=== PATIENT | female | born 1950 | race Caucasian/White ===

== ENCOUNTER → 2018-03-19 11:07 | Outpatient (CLI) | payer MEDICARE, OTHER, SELFPAY ==
[2018-03-19 11:46] LABS: Add Manual Diff / Slide Review NO; Basophils Percent Auto 0.8 % (0-2); Eosinophils Percent Auto 3.1 % (2-4); Lymphocytes Percent Auto 22.4 % (25-40); Mean Corpuscular HGB Conc 33.3 % (30-36); Mean Corpuscular Hemoglobin 27.9 PG (26-34); Mean Corpuscular Volume 83.9 fL (80-100); Monocytes Percent Auto 13.2 % (3-14); Neutrophils Absolute Auto 2800 /uL (3000-5900); Neutrophils Percent Auto 60.5 % (50-75); Platelet Count 237 X10^3/uL (150-400); Red Blood Cell Count 4.64 X10^6/uL (4.0-5.2); Red Cell Distribution Width 15.9 % (11.6-14.8); White Blood Cell Count 4.6 X10^3/uL (4.5-11.0)
[2018-03-19 11:54] LABS: Alanine Aminotransferase 29 IU/L (9-52); Albumin 4.3 g/dL (3.5-5.0); Albumin Globulin Ratio 1.5 (1.0-2.8); Alkaline Phosphatase 96 U/L (38-126); Aspartate Aminotransferase 30 IU/L (14-36); BUN Creatinine Ratio 26.3 (6-22); Bilirubin Total 0.4 mg/dL (0.2-1.3); Blood Urea Nitrogen 21 mg/dL (7-17); Calcium 9.3 mg/dL (8.4-10.2); Carbon Dioxide 27 mmol/L (22-32); Chloride 102 mmol/L (98-107); Estimated Glomerular Filt Rate > 60.0 mL/min (>60); Globulin 2.9 g/dL (1.7-4.1); Glucose 86 mg/dL (80-110); HEMOLYSIS < 15 (0-50); Sodium 141 mmol/L (137-145); Total Protein 7.2 g/dL (6.3-8.2)
[2018-03-19 13:06] LABS: Cancer Antigen 125 3940 U/mL (0-35)
[2018-03-19 16:05] LABS: Carcinoembryonic Antigen 0.3 ng/mL (0.1-3.0)
== END ==
PROVIDERS: Family Provider Obstetrics & Gynecology; PCP Family Medicine; Visit Provider Internal Medicine Hematology & Oncology
DX: C57.00 Malignant neoplasm of unspecified fallopian tube (principal); Z15.01 Genetic susceptibility to malignant neoplasm of breast; Z85.3 Personal history of malignant neoplasm of breast
CPT/HCPCS: 36415; 80053; 82378; 85025; 86304

== ENCOUNTER → 2018-03-27 10:23 | Outpatient (CLI) | payer MEDICARE, OTHER, SELFPAY ==
--- NOTE | 2018-03-27 11:16 | DI.CT.S_ITS ---
PROCEDURE: CT CHEST ABD PEL W CON INDICATIONS: Follow up ovarian cancer surveillance. TECHNIQUE: After the administration of oral and intravenous contrast, 5 mm thick sections acquired from the lung apices to the symphysis. 5 mm coronal and sagittal reformats were performed, with additional 7 mm coronal MIP reformats through the lungs. For radiation dose reduction, the following was used: automated exposure control, adjustment of mA and/or kV according to patient size. COMPARISON: None. FINDINGS: Image quality: Excellent. CHEST: Lungs and pleura: No acute airspace opacities. No pleural effusions or pneumothorax. Central and peripheral airways appear patent and normal in caliber. Mediastinum: Heart size is normal. No pericardial effusion. No mediastinal or hilar adenopathy by size criteria. Thoracic aorta and central pulmonary arteries are normal in size. Mild calcification of the aorta and branch vessels. Chest wall: No axillary or supraclavicular adenopathy by size criteria. Thyroid gland is unremarkable. Surgical clips project over the right chest.. ABDOMEN: Solid organs: There is redemonstration of a 2.1 x 2.1 cm oval mass interposed between and directly contacting the right hepatic lobe and right kidney (remeasured on comparison PET/CT exam of 08/22/17 at 2.0 x 1.9 cm). There is now an adjacent 2.0 cm area of ill-defined hypoattenuation within the posterior right hepatic lobe (hepatic segment 6) concerning for direct invasion. fluid tracks anteromedially along the posterior margin of hepatic segment 6 where a second 1.5 cm cystic mass interposed between the right hepatic lobe and the duodenum (axial image 61 of series 2). There is a 1.5 x 1.4 cm new soft tissue mass adjacent the mesenteric border of the distal stomach on axial image 68 of series 2. Gallbladder is unremarkable. No intrahepatic or extrahepatic biliary ductal dilatation. Small subcentimeter hypoattenuating oval circumscribed foci within the pancreatic head are noted. The spleen and bilateral adrenal glands are unremarkable. Subcentimeter hypoattenuating foci within the kidneys are too small to fully characterize on this exam but likely represent renal cysts. Peritoneum and bowel: There is a 3.9 x 3.5 cm oval hypoattenuating mass in the left pelvis which appears to involve/invade an adjacent loop of small bowel (axial image 99 of series 2). Nodes and vessels: Interval decrease in size of the previously identified left para-aortic lymph node which currently measures 0.6 cm in greatest diameter, previously 1.5 cm on 08/22/17. There is a new 1.8 cm enlarged lymph node interposed between the left common iliac vein and left psoas muscle (axial image 83 of series 2). Miscellaneous: No ventral hernias. PELVIS: Genitourinary: Bladder wall thickness is normal. Miscellaneous: No inguinal hernias or adenopathy. Bones: No suspicious bony lesions. There are mild multilevel degenerative changes of the lumbar spine with a right L5 pars defect noted. IMPRESSION: Interval worsening of metastatic disease as evidenced by: #1. Mildly increased size of the irregular mass interposed between the posterior right hepatic lobe and right kidney, with CT findings indicating worsened direct invasion of the posterior right hepatic lobe. #2. New abnormal masses adjacent the right hepatic lobe and along the mesenteric border of the stomach as described above, with the mass adjacent to the stomach measuring up to 1.5 cm in size. #3. Enlarged left iliac lymph node. Smaller left para-aortic lymph node. #4. 3.9 cm oval hypoattenuating mass in the left pelvis with concern for involvement/invasion of an adjacent small bowel loop. Dictated by: Danny Piedra M.D. on 03/27/2018 at 12:11 Approved by: Danny Piedra M.D. on 03/27/2018 at 12:42
== END ==
PROVIDERS: Family Provider Obstetrics & Gynecology; PCP Family Medicine
DX: C57.00 Malignant neoplasm of unspecified fallopian tube (principal); Z15.01 Genetic susceptibility to malignant neoplasm of breast; R16.0 Hepatomegaly, not elsewhere classified; N28.89 Other specified disorders of kidney and ureter; R59.0 Localized enlarged lymph nodes; R19.09 Other intra-abdominal and pelvic swelling, mass and lump
CPT/HCPCS: 71260; 74177; Q9967

== ENCOUNTER 2018-04-15 12:18 | Day surgery (SDC) | payer MEDICARE, OTHER, SELFPAY ==
[2018-04-15] VITALS (8 sets, daily range): BP systolic 98–145; BP diastolic 53–85; PULSE 72–83; RESP 10–18; TEMP 35.9–36.9; O2SAT 99–100; BMI 23.1
--- NOTE | 2018-04-15 | DI.RAD.S_ITS ---
PROCEDURE: XR CHEST 1V INDICATIONS: PORT A CATH PLACEMENT TECHNIQUE: One view of the chest was acquired. COMPARISON: [facility], , CHEST 1 VIEW, 11/15/2015, 13:20. FINDINGS: Surgical changes and devices: Single fluoroscopic view of the chest demonstrates a wire within the subclavian vein the tip of which is likely in the SVC. IMPRESSION: Single fluoroscopic intraoperative image of Port-A-Cath placement. Dictated by: Sandra Carmona M.D. on 04/15/2018 at 14:56 Approved by: Sandra Carmona M.D. on 04/15/2018 at 14:57
--- NOTE | 2018-04-15 | DI.RAD.S_ITS ---
PROCEDURE: XR CHEST 1V INDICATIONS: POST PORT A CATH PLACEMENT TECHNIQUE: One view of the chest was acquired. COMPARISON: [facility], CR, XR CHEST 1V, 04/15/2018, 13:37. FINDINGS: Surgical changes and devices: A left-sided Port-A-Cath central line is identified with the tip overlying the mid superior vena cava. Clips are seen overlying the right lateral chest wall. Lungs and pleura: No pleural effusions or pneumothorax. Lungs are clear. Mediastinum: Mediastinal contours appear normal. Heart size is normal. Bones and chest wall: No suspicious bony lesions. Overlying soft tissues appear unremarkable. IMPRESSION: Left-sided Port-A-Cath central line is positioned with the tip overlying the superior vena cava. No pneumothorax. Dictated by: Jossue Jones M.D. on 04/15/2018 at 14:21 Approved by: Jossue Jones M.D. on 04/15/2018 at 14:22
[2018-04-15] MEDS: LACTATED RINGERS 1,000 ML 42 ML IV (13:10)
--- NOTE | 2018-04-15 13:15 | SUR.OPER ---
Supine on padded OR bed, head on pillow, arms secured on padded arm boards at <90 degrees abduction, legs uncrossed, safety belt at thigh, tape over blanket over lower legs.
--- NOTE | 2018-04-15 13:18 | SUR.PREOP ---
PT VERY EMOTIONAL AND CRYING, SUPPORT OFFERED, DR LLANOS IN WITH PT.
[2018-04-15] MEDS: CEFAZOLIN 2 GM/100 ML FROZ.PIGGY IV (14:11)
[2018-04-15] MEDS: BUPIVACAINE 0.5% (PF) VIAL 30 ML INJ (14:26)
[2018-04-15] MEDS: LIDOCAINE 1% W/EPI INJ 20 ML INJ (14:26)
[2018-04-15] MEDS: SODIUM CHLORIDE 0.9% FLUSH 10 ML IV (14:27)
--- NOTE | 2018-04-15 14:45 | P.OP_ITS ---
Operative Date/Time/Diagnoses Date of procedure: 04/15/18 Time of procedure: 14:44 Pre-op diagnosis: Recurrent fallopian tube cancer Post-op diagnosis: same Procedure & Clinicians Procedure: Left subclavian PowerPort placement Same procedure as scheduled: Yes Indications: Recurrent fallopian tube malignancy Surgeon: Cesilia Nichole Click Yes if Unassisted: Yes Anesthesia Type: General (Goetter) and Local Operative Notes Findings: Left subclavian power port in good position in the superior vena cava Closure Type: primary Specimen(s): none sent Implants & Drains: Low-profile PowerPort Estimated Blood Loss (mL): 10 Procedure in detail: After obtaining informed consent, the patient was brought to the operating room and placed in the supine position on the operating table. Following successful induction of general endotracheal anesthesia, appropriate padding of all bony prominences, and placement of appropriate monitors, the left chest was prepped and draped in a standard surgical fashion. A timeout was held per SCOAP protocol. A mixture of local anesthetics was infiltrated in the deltopectoral groove on the left side. The right subclavian vein was accessed via the Seldinger technique and a wire was gently placed into the vein. Fluoroscopy was used to verify position of the wire in the subclavian vein. We next created a pocket of approximately 2 cm inferior to the access site of the vein. This was checked for size and found to fit the port nicely. The included tunneling device was used to place the tubing and the pocket connecting it to the access site of the subclavian vein. The tubing was trimmed to an appropriate length and connected to the Port-A-Cath. The Port-A-Cath was sewn into place in the pocket using interrupted Prolene sutures. The pocket was closed in 2 layers. The dilator and introducer were then gently passed over the wire and into the subclavian vein. The wire and dilator were removed leaving only the introducer. The tubing was then placed in the introducer and the introducer removed per woodworking machine feeder's directions. The port was then flushed with saline solution and found to be functional and in good position. It was then hep- locked with 2000 units of heparin. The incision was closed in 2 layers with Vicryl and Monocryl sutures. Dermabond was applied to the skin. All sponge, needle, and instrument counts were correct at the conclusion of the case. Patient was allowed to awaken from anesthesia and taken to the post-anesthesia care unit in good condition. Complications: none Condition: stable Disposition: PACU Plan for aftercare: 1. Discharge to home 2. The port is ready for use
--- NOTE | 2018-04-15 14:47 | PM.HP.1 ---
History of Present Illness Date Patient Seen: 04/15/18 Time Patient Seen: 14:47 Chief complaint: [id number] Narrative: Very pleasant 67-year-old lady with a history of fallopian tube malignancy. She was noted recently to have a rising tumor marker and subsequent imaging studies showed recurrence of her malignancy. She is here today for port placement to facilitate chemotherapy. Patient History Medical History History of cellulitis (Acute ~2013) Hypertension (Acute) Poor sleep (Acute) Weight loss (Acute) Surgical History History of bilateral salpingo-oophorectomy (BSO) Status post appendectomy Status post breast lumpectomy Status post hysterectomy with oophorectomy (10/18/15) Status post laparoscopy (10/09/15) Status post tonsillectomy and adenoidectomy Status post tubal ligation Family & Social History Family History: Reviewed 04/15/18 by Cesilia Nichole MD Social History: household members spouse Meds Home Medications Medication Instructions Recorded Confirmed Type multivitamin [Multiple Vitamins] 1 cap PO QDAY #0 08/29/16 04/08/18 History [ARTECIN] 500 mg PO MONDAYS #0 02/10/17 04/08/18 History [BERBERINE] 500 mg #0 02/10/17 History [CALCIUM D/GLUCARATE] #0 02/10/17 History [GLUTATHIONE FORCE/DE] #0 02/10/17 History [RESERATROL SYNERGY] #0 02/10/17 History cholecalciferol (vitamin D3) 5,000 tab PO QDAY #0 02/10/17 04/08/18 History [Vitamin D3] [HOST DEF MUSHROOM IM] #0 05/19/17 History [KETOPRIME] #0 05/19/17 History [MERIVA] #0 05/19/17 History [MK-7] #0 05/19/17 History [RESTORE] #0 05/19/17 History [RHODIOLA] #0 05/19/17 History [VISCUM DAVID] 5 mg #0 05/19/17 History ascorbic acid (vitamin C) #0 05/19/17 History oregano oil mg PO #0 05/19/17 History [MARIJUANA CAPSULES] #0 01/10/18 History naltrexone 03/24/18 History Allergies Allergy/AdvReac Type Severity Reaction Status Date / Time erythromycin base AdvReac Unknown UPSET Verified 04/15/18 13:22 [ERYTHROMYCIN BASE] STOMACH Review of Systems Review of Systems All systems reviewed & are unremarkable except as noted in HPI and below Exam Vital Signs (past 8 hours): - 04/15/18 13:13 Temperature 98.4 F Pulse Rate 72 Respiratory Rate 18 Blood Pressure 145/85 H Pulse Oximetry 100 Oxygen Delivery Method Room Air Narrative Exam Narrative: Pleasant, thin lady in no obvious distress HEENT: Normocephalic and atraumatic, pupils equal round reactive to light accommodation with anicteric sclera Lungs: Clear bilaterally Heart: Regular rate and rhythm. There is a healed left chest incision noted consistent with prior port placement and subsequent removal. Abdomen: Soft, nontender, active bowel sounds Extremities: Warm and well perfused Assessment & Plan Plan: Assessment/Plan Narrative: Recurrent fallopian tube cancer. We discussed risks and benefits of power port placement the patient expressed a desire to complete the procedure today. She has also requested that the port be placed through the same scar that the prior port was placed through. I have agreed to at least try that as an initial approach and to put it there if at all possible.
[2018-04-15] MEDS: fentaNYL 100 MCG/2 ML INJ 50 MCG IV (15:03)
== END 2018-04-15 15:37 ==
PROVIDERS: Family Provider Obstetrics & Gynecology; PCP Family Medicine; Visit Provider Surgery
PROC: (CPT 36561; principal; 2018-04-15 13:30)
DX: C57.00 Malignant neoplasm of unspecified fallopian tube (principal); I10 Essential (primary) hypertension; R63.4 Abnormal weight loss
CPT/HCPCS: 36561; 71045; 76000; C1788; J0690; J1100; J1644; J2250; J2405; J2704; J3010

== ENCOUNTER 2018-11-10 16:42 | Emergency (ER) | payer MEDICARE, OTHER, SELFPAY ==
[2018-11-10 16:48] VITALS: BP 149/93; PULSE 90; RESP 20; TEMP 36.8; O2SAT 98
--- NOTE | 2018-11-10 17:03 | ED.ABDPAIN ---
HPI - Abdominal Pain <Cate Richter PA-C - Last Filed: 11/10/18 21:42> General Chief Complaint: Abdominal Pain Stated Complaint: DISTENDED ABDOMIN Time Seen by Provider: 11/10/18 16:55 Source: patient Mode of arrival: ambulatory Limitations: no limitations History of Present Illness HPI narrative: This 67-year-old female comes to ED today secondary to worsening abdominal bloating and discomfort. She states this is really more swollen and pressure sensation all over than painful. She saw her oncologist yesterday as she has a history of fallopian tube carcinoma, metastatic. She has been scheduled for abdominal ultrasound later this week and as well as PET-CT, but states this is worse today than yesterday. She states that she does not have any nausea or vomiting, persistent loss of appetite. She denies any new fever, chills or sweats, states that she is always cold and this is unchanged. She denies any urinary symptoms or hematuria. She states she has had diarrhea for at least a month, with loose to watery stools multiple times typically in the morning, then better later in the day. She states that she occasionally has some blood in the stools which she thinks is due to hemorrhoids and irritation from the diarrhea. She has not had any blood in the stools today. She denies any chest pain or dyspnea. No cough or recent upper respiratory symptoms. No new pain or swelling in her legs. She denies any pain elsewhere today. She states that she feels like something is ?leaking? into her abdomen Related Data Home Medications Medication Instructions Recorded Confirmed [MARIJUANA CAPSULES] 1 cap PO BEDTIME PRN #0 08/06/17 11/10/18 [id number] 1 tab PO Q4-6H PRN 11/09/18 11/10/18 [Excedrin Migraine] Allergies Allergy/AdvReac Type Severity Reaction Status Date / Time erythromycin base AdvReac Unknown UPSET Verified 04/15/18 13:22 [ERYTHROMYCIN BASE] STOMACH Review of Systems <Cate Richter PA-C - Last Filed: 11/10/18 21:42> Review of Systems ROS Unobtainable: All systems reviewed & are unremarkable except as noted in HPI and below PFSH <CUCA Fermin Last Filed: 11/10/18 21:42> Medical History (Updated 11/10/18 @ 20:59 by Cate Richter PA-C) Metastatic carcinoma (Acute) Anemia (Chronic) Hypothyroidism (Chronic) Hypertension (Chronic) Poor sleep (Chronic) Weight loss (Chronic) History of cellulitis (Resolved ~2012) Surgical History (Updated 11/09/18 @ 17:54 by Karen Horne MD) History of bilateral salpingo-oophorectomy (BSO) Status post appendectomy Status post breast lumpectomy Status post hysterectomy with oophorectomy (10/18/15) Status post laparoscopy (10/09/15) Status post tonsillectomy and adenoidectomy Status post tubal ligation Social History household members: spouse Smoking Status: Never smoker Social History household members: spouse Smoking Status: Never smoker Exam <Cate Richter PA-C - Last Filed: 11/10/18 21:42> Narrative Exam Narrative: GENERAL APPEARANCE: Patient sitting comfortably, in no distress. thin and frail-appearing HEENT: PERRL, EOMI, conjunctivae pink, no scleral icterus, normal oropharynx NECK: Supple LUNGS: Clear to auscultation bilaterally. HEART: Rate and rhythm regular, normal S1 and S2, no S3 or S4. ABDOMEN: Soft, moderate distention, minimal generalized tenderness without guarding or rebound. soft bowel sounds present x 4 quadrants EXTREMITIES: No edema, no calf tenderness DERMATOLOGIC: No jaundice or exanthem NEUROLOGIC: Alert and oriented with normal speech and coordination Initial Vital Signs Initial Vital Signs: Vital Signs Temperature 98.2 F 11/10/18 16:48 Pulse Rate 90 11/10/18 16:48 Respiratory Rate 20 11/10/18 16:48 Blood Pressure 149/93 H 11/10/18 16:48 Pulse Oximetry 98 11/10/18 16:48 <Checo Stewart MD - Last Filed: 11/10/18 23:24> Initial Vital Signs Initial Vital Signs: Vital Signs Temperature 98.2 F 11/10/18 16:48 Pulse Rate 90 11/10/18 16:48 Respiratory Rate 20 11/10/18 16:48 Blood Pressure 149/93 H 11/10/18 16:48 Pulse Oximetry 98 11/10/18 16:48 Course <Cate Richter PA-C - Last Filed: 11/10/18 21:42> Additional Information: Patient reported feeling substantially improved after a single dose of Percocet and was resting comfortably during her stay. She has not had any nausea or vomiting, no new fever or other new complaints aside from feeling like this abdominal distension has increased. We are not able to obtain CT scans today. Ultrasound shows ascites without other clear acute findings. She does not appear to need hospital admission, but does need paracentesis. I spoke with Dr. Johnston who is on-call for Oncology, reviewed records and findings. He agrees with the plan for diagnostic and therapeutic paracentesis. We are attempting to get patient scheduled for this tomorrow as it cannot be done this evening. Orders were given to Radiology including lab order for cytology, with plan to forward results to Dr. Horne. mosaic technician will give these to scheduling and they will call patient in the morning. Patient is given radiology number to call if she has not heard from them by [phone]. She will also call oncology tomorrow regarding plan and whether she should follow up earlier than previously scheduled. Dr. Johnston will pass this on to Dr. Horne as well. patient agreed to return if any acutely worsening symptoms Orders Ordered: ED Orders 11/10/18 17:15 Complete Blood Count AUTO DIFF Stat Comprehensive Metabolic Panel Stat Lipase Stat Partial Thromboplastin Time Stat Prothrombin Time INR Stat 11/10/18 17:28 US abdomen complete Stat Discontinued Medications Oxycodone/Acetaminophen (Percocet 5/325) 1 tab PO NOW ONE Stop: 11/10/18 17:47 Last Admin: 11/10/18 17:53 Dose: 1 tab Oxycodone/Acetaminophen (Endocet 5/325 Prepack) 1 bottle MISC SEEINSTR ONE Stop: 11/10/18 20:51 Last Admin: 11/10/18 20:55 Dose: 1 bottle Vital Signs - 8 hr 11/10/18 16:48 11/10/18 18:26 11/10/18 19:51 Temperature 98.2 F Pulse Rate 90 79 98 H Respiratory Rate 20 15 14 Blood Pressure 149/93 H Blood Pressure [Right Arm] 144/82 H 129/66 Pulse Oximetry 98 100 95 <Checo Stewart MD - Last Filed: 11/10/18 23:24> Orders Ordered: ED Orders 11/10/18 17:15 Complete Blood Count AUTO DIFF Stat Comprehensive Metabolic Panel Stat Lipase Stat Partial Thromboplastin Time Stat Prothrombin Time INR Stat 11/10/18 17:28 US abdomen complete Stat Discontinued Medications Oxycodone/Acetaminophen (Percocet 5/325) 1 tab PO NOW ONE Stop: 11/10/18 17:47 Last Admin: 11/10/18 17:53 Dose: 1 tab Oxycodone/Acetaminophen (Endocet 5/325 Prepack) 1 bottle MISC SEEINSTR ONE Stop: 11/10/18 20:51 Last Admin: 11/10/18 20:55 Dose: 1 bottle Vital Signs - 8 hr 11/10/18 16:48 11/10/18 18:26 11/10/18 19:51 Temperature 98.2 F Pulse Rate 90 79 98 H Respiratory Rate 20 15 14 Blood Pressure 149/93 H Blood Pressure [Right Arm] 144/82 H 129/66 Pulse Oximetry 98 100 95 MDM - Abdominal Pain <Cate Richter PA-C - Last Filed: 11/10/18 21:42> Lab Data Result diagrams: 11/10/18 17:15 11/10/18 17:15 Lab Results 11/10/18 11/10/18 11/10/18 Range/Units 17:15 17:15 17:15 WBC 3.5 L (4.5-11.0) X10^3/uL RBC 3.97 L (4.0-5.2) X10^6/uL Hgb 10.5 L (12.0-16.0) g/dL Hct 32.0 L (36-46) % MCV 80.7 (80-100) fL MCH 26.4 (26-34) PG MCHC 32.7 (30-36) % RDW 14.1 (11.6-14.8) % Plt Count 402 H (150-400) X10^3/uL Neut % (Auto) 63.4 (50-75) % Lymph % (Auto) 21.5 L (25-40) % [place] % (Auto) 10.3 (3-14) % Eos % (Auto) 3.5 (2-4) % Baso % (Auto) 1.3 (0-2) % Neut # (Auto) 2200 (8122-2081) /uL Lymph # (Auto) 700 L (2395-8070) /uL [place] # (Auto) 400 (0-900) /uL Eos # (Auto) 100 (0-450) /uL Baso # (Auto) 0 (0-100) /uL PT 11.7 (10.1-12.7) SECONDS INR 1.0 (0.9-1.3) APTT 24 L (26.4-36.2) SECONDS Sodium 136 L (137-145) mmol/L Potassium 3.8 (3.4-5.1) mmol/L Chloride 101 (98-107) mmol/L Carbon Dioxide 25 (22-32) mmol/L BUN 17 (7-17) mg/dL Creatinine 0.70 (0.52-1.04) mg/dL Estimated GFR > 60.0 (>60) mL/min BUN/Creatinine Ratio 24.3 H (6-22) Glucose 90 (80-110) mg/dL Calcium 8.8 (8.4-10.2) mg/dL Total Bilirubin 0.2 (0.2-1.3) mg/dL AST 30 (14-36) IU/L ALT 27 (9-52) IU/L Alkaline Phosphatase 83 (38-126) U/L Total Protein 6.6 (6.3-8.2) g/dL Albumin 3.7 (3.5-5.0) g/dL Globulin 2.9 (1.7-4.1) g/dL Albumin/Globulin Ratio 1.3 (1.0-2.8) Lipase 123 (23-300) U/L Point of care testing: Urine Dip Bedside Urine Glucose Negative Bedside Urine Bilirubin - Negative Bedside Urine Ketone +/- 5 Urine Specific [place] 1.020 Bedside Urine Occult Blood - Negative Bedside Urine pH 6.0 Bedside Urine Protein +/- 15 Bedside Urine Urobilinogen - Negative Bedside Urine Nitrite - Negative Bedside Urine Leukocytes - Negative Esterase <Checo Stewart MD - Last Filed: 11/10/18 23:24> Lab Data Lab Results 11/10/18 11/10/18 11/10/18 Range/Units 17:15 17:15 17:15 WBC 3.5 L (4.5-11.0) X10^3/uL RBC 3.97 L (4.0-5.2) X10^6/uL Hgb 10.5 L (12.0-16.0) g/dL Hct 32.0 L (36-46) % MCV 80.7 (80-100) fL MCH 26.4 (26-34) PG MCHC 32.7 (30-36) % RDW 14.1 (11.6-14.8) % Plt Count 402 H (150-400) X10^3/uL Neut % (Auto) 63.4 (50-75) % Lymph % (Auto) 21.5 L (25-40) % [place] % (Auto) 10.3 (3-14) % Eos % (Auto) 3.5 (2-4) % Baso % (Auto) 1.3 (0-2) % Neut # (Auto) 2200 (8168-9948) /uL Lymph # (Auto) 700 L (2438-1092) /uL [place] # (Auto) 400 (0-900) /uL Eos # (Auto) 100 (0-450) /uL Baso # (Auto) 0 (0-100) /uL PT 11.7 (10.1-12.7) SECONDS INR 1.0 (0.9-1.3) APTT 24 L (26.4-36.2) SECONDS Sodium 136 L (137-145) mmol/L Potassium 3.8 (3.4-5.1) mmol/L Chloride 101 (98-107) mmol/L Carbon Dioxide 25 (22-32) mmol/L BUN 17 (7-17) mg/dL Creatinine 0.70 (0.52-1.04) mg/dL Estimated GFR > 60.0 (>60) mL/min BUN/Creatinine Ratio 24.3 H (6-22) Glucose 90 (80-110) mg/dL Calcium 8.8 (8.4-10.2) mg/dL Total Bilirubin 0.2 (0.2-1.3) mg/dL AST 30 (14-36) IU/L ALT 27 (9-52) IU/L Alkaline Phosphatase 83 (38-126) U/L Total Protein 6.6 (6.3-8.2) g/dL Albumin 3.7 (3.5-5.0) g/dL Globulin 2.9 (1.7-4.1) g/dL Albumin/Globulin Ratio 1.3 (1.0-2.8) Lipase 123 (23-300) U/L Point of care testing: Urine Dip Bedside Urine Glucose Negative Bedside Urine Bilirubin - Negative Bedside Urine Ketone +/- 5 Urine Specific [place] 1.020 Bedside Urine Occult Blood - Negative Bedside Urine pH 6.0 Bedside Urine Protein +/- 15 Bedside Urine Urobilinogen - Negative Bedside Urine Nitrite - Negative Bedside Urine Leukocytes - Negative Esterase Discharge Plan Departure Patient Disposition: Home Clinical Impression: Ascites Qualifiers: Ascites type: malignant Qualified Code(s): R18.0 - Malignant ascites Abdominal pain Qualifiers: Abdominal location: generalized Qualified Code(s): R10.84 - Generalized abdominal pain Discharge Date/Time: 11/10/18 21:04 Interventions: ED Discharge Assessment Last Done: 11/10/18 21:03 Instructions: DI for Ascites Activity Restrictions/Additional Instructions: Please return as we talked about if you have acutely worsening symptoms or new symptoms such as vomiting or fever. Otherwise, the plan is for radiology to call you tomorrow morning between about 8 and 8:30 to give you a time to drain some of the fluid off your abdomen. This should help you feel better and also they will be able to send the fluid for diagnosis so that they can determine whether this is related to your cancer or some other cause. Please call them (I have circled the number on the order sheet I gave you) if you have not heard from them by 8:45 a.m. You can take the pain medicine oxycodone/acetaminophen that we gave you tonight 1 tablet up to every 4 hours as needed since it seems to have helped you quite a bit. Do not drive with that as it could make you sleepy. Please get in touch with the cancer center tomorrow and let them know that you were in the emergency room as they may want to see you earlier than planned Prescriptions: No Action [MARIJUANA CAPSULES] 1 cap PO BEDTIME PRN (Reason: sleep or pain) Qty: 0 RF: 0 Excedrin Migraine 250-250-65 mg Tablet 1 tab PO Q4-6H PRN (Reason: Pain (Scale Score 1-3)) RF: 0 Referrals: Juan Storey MD [Primary Care Provider] - Karen Horne MD [Physician] - <Checo Stewart MD - Last Filed: 11/10/18 23:24> Cosign ED Attending Cosignature Attestation: I was present in the ER at the time this patient's care. I was available for consultation if needed. I agree with the assessment and treatment plan.
--- NOTE | 2018-11-10 17:06 | ED_ITS ---
HPI - Abdominal Pain <Cate Richter PA-C - Last Filed: 11/10/18 21:42> General Chief Complaint: Abdominal Pain Stated Complaint: DISTENDED ABDOMIN Time Seen by Provider: 11/10/18 16:55 Source: patient Mode of arrival: ambulatory Limitations: no limitations History of Present Illness HPI narrative: This 67-year-old female comes to ED today secondary to worsening abdominal bloating and discomfort. She states this is really more swollen and pressure sensation all over than painful. She saw her oncologist yesterday as she has a history of fallopian tube carcinoma, metastatic. She has been scheduled for abdominal ultrasound later this week and as well as PET-CT, but states this is worse today than yesterday. She states that she does not have any nausea or vomiting, persistent loss of appetite. She denies any new fever, chills or sweats, states that she is always cold and this is unchanged. She denies any urinary symptoms or hematuria. She states she has had diarrhea for at least a month, with loose to watery stools multiple times typically in the morning, then better later in the day. She states that she occasionally has some blood in the stools which she thinks is due to hemorrhoids and irritation from the diarrhea. She has not had any blood in the stools today. She denies any chest pain or dyspnea. No cough or recent upper respiratory symptoms. No new pain or swelling in her legs. She denies any pain elsewhere today. She states that she feels like something is ?leaking? into her abdomen Related Data Home Medications Medication Instructions Recorded Confirmed [MARIJUANA CAPSULES] 1 cap PO BEDTIME PRN #0 08/06/17 11/10/18 [id number] 1 tab PO Q4-6H PRN 11/09/18 11/10/18 [Excedrin Migraine] Allergies Allergy/AdvReac Type Severity Reaction Status Date / Time erythromycin base AdvReac Unknown UPSET Verified 04/15/18 13:22 [ERYTHROMYCIN BASE] STOMACH Review of Systems <Cate Richter PA-C - Last Filed: 11/10/18 21:42> Review of Systems ROS Unobtainable: All systems reviewed & are unremarkable except as noted in HPI and below PFSH <CUCA Fermin Last Filed: 11/10/18 21:42> Medical History (Updated 11/10/18 @ 20:59 by Cate Richter PA-C) Metastatic carcinoma (Acute) Anemia (Chronic) Hypothyroidism (Chronic) Hypertension (Chronic) Poor sleep (Chronic) Weight loss (Chronic) History of cellulitis (Resolved ~2012) Surgical History (Updated 11/09/18 @ 17:54 by Karen Horne MD) History of bilateral salpingo-oophorectomy (BSO) Status post appendectomy Status post breast lumpectomy Status post hysterectomy with oophorectomy (10/18/15) Status post laparoscopy (10/09/15) Status post tonsillectomy and adenoidectomy Status post tubal ligation Social History household members: spouse Smoking Status: Never smoker Social History household members: spouse Smoking Status: Never smoker Exam <Cate Richter PA-C - Last Filed: 11/10/18 21:42> Narrative Exam Narrative: GENERAL APPEARANCE: Patient sitting comfortably, in no distress. thin and frail-appearing HEENT: PERRL, EOMI, conjunctivae pink, no scleral icterus, normal oropharynx NECK: Supple LUNGS: Clear to auscultation bilaterally. HEART: Rate and rhythm regular, normal S1 and S2, no S3 or S4. ABDOMEN: Soft, moderate distention, minimal generalized tenderness without guarding or rebound. soft bowel sounds present x 4 quadrants EXTREMITIES: No edema, no calf tenderness DERMATOLOGIC: No jaundice or exanthem NEUROLOGIC: Alert and oriented with normal speech and coordination Initial Vital Signs Initial Vital Signs: Vital Signs Temperature 98.2 F 11/10/18 16:48 Pulse Rate 90 11/10/18 16:48 Respiratory Rate 20 11/10/18 16:48 Blood Pressure 149/93 H 11/10/18 16:48 Pulse Oximetry 98 11/10/18 16:48 <Checo Stewart MD - Last Filed: 11/10/18 23:24> Initial Vital Signs Initial Vital Signs: Vital Signs Temperature 98.2 F 11/10/18 16:48 Pulse Rate 90 11/10/18 16:48 Respiratory Rate 20 11/10/18 16:48 Blood Pressure 149/93 H 11/10/18 16:48 Pulse Oximetry 98 11/10/18 16:48 Course <Cate Richter PA-C - Last Filed: 11/10/18 21:42> Additional Information: Patient reported feeling substantially improved after a single dose of Percocet and was resting comfortably during her stay. She has not had any nausea or vomiting, no new fever or other new complaints aside from feeling like this abdominal distension has increased. We are not able to obtain CT scans today. Ultrasound shows ascites without other clear acute findings. She does not appear to need hospital admission, but does need paracentesis. I spoke with Dr. Johnston who is on-call for Oncology, reviewed records and findings. He agrees with the plan for diagnostic and therapeutic paracentesis. We are attempting to get patient scheduled for this tomorrow as it cannot be done this evening. Orders were given to Radiology including lab order for cytology, with plan to forward results to Dr. Horne. technician preventative medicine will give these to scheduling and they will call patient in the morning. Patient is given radiology number to call if she has not heard from them by [phone]. She will also call oncology tomorrow regarding plan and whether she should follow up earlier than previously scheduled. Dr. Johnston will pass this on to Dr. Hrone as well. patient agreed to return if any acutely worsening symptoms Orders Ordered: ED Orders 11/10/18 17:15 Complete Blood Count AUTO DIFF Stat Comprehensive Metabolic Panel Stat Lipase Stat Partial Thromboplastin Time Stat Prothrombin Time INR Stat 11/10/18 17:28 US abdomen complete Stat Discontinued Medications Oxycodone/Acetaminophen (Percocet 5/325) 1 tab PO NOW ONE Stop: 11/10/18 17:47 Last Admin: 11/10/18 17:53 Dose: 1 tab Oxycodone/Acetaminophen (Endocet 5/325 Prepack) 1 bottle MISC SEEINSTR ONE Stop: 11/10/18 20:51 Last Admin: 11/10/18 20:55 Dose: 1 bottle Vital Signs - 8 hr 11/10/18 16:48 11/10/18 18:26 11/10/18 19:51 Temperature 98.2 F Pulse Rate 90 79 98 H Respiratory Rate 20 15 14 Blood Pressure 149/93 H Blood Pressure [Right Arm] 144/82 H 129/66 Pulse Oximetry 98 100 95 <Checo Stewart MD - Last Filed: 11/10/18 23:24> Orders Ordered: ED Orders 11/10/18 17:15 Complete Blood Count AUTO DIFF Stat Comprehensive Metabolic Panel Stat Lipase Stat Partial Thromboplastin Time Stat Prothrombin Time INR Stat 11/10/18 17:28 US abdomen complete Stat Discontinued Medications Oxycodone/Acetaminophen (Percocet 5/325) 1 tab PO NOW ONE Stop: 11/10/18 17:47 Last Admin: 11/10/18 17:53 Dose: 1 tab Oxycodone/Acetaminophen (Endocet 5/325 Prepack) 1 bottle MISC SEEINSTR ONE Stop: 11/10/18 20:51 Last Admin: 11/10/18 20:55 Dose: 1 bottle Vital Signs - 8 hr 11/10/18 16:48 11/10/18 18:26 11/10/18 19:51 Temperature 98.2 F Pulse Rate 90 79 98 H Respiratory Rate 20 15 14 Blood Pressure 149/93 H Blood Pressure [Right Arm] 144/82 H 129/66 Pulse Oximetry 98 100 95 MDM - Abdominal Pain <Cate Richter PA-C - Last Filed: 11/10/18 21:42> Lab Data Result diagrams: 11/10/18 17:15 11/10/18 17:15 Lab Results 11/10/18 11/10/18 11/10/18 Range/Units 17:15 17:15 17:15 WBC 3.5 L (4.5-11.0) X10^3/uL RBC 3.97 L (4.0-5.2) X10^6/uL Hgb 10.5 L (12.0-16.0) g/dL Hct 32.0 L (36-46) % MCV 80.7 (80-100) fL MCH 26.4 (26-34) PG MCHC 32.7 (30-36) % RDW 14.1 (11.6-14.8) % Plt Count 402 H (150-400) X10^3/uL Neut % (Auto) 63.4 (50-75) % Lymph % (Auto) 21.5 L (25-40) % [place] % (Auto) 10.3 (3-14) % Eos % (Auto) 3.5 (2-4) % Baso % (Auto) 1.3 (0-2) % Neut # (Auto) 2200 (4365-7777) /uL Lymph # (Auto) 700 L (7605-9804) /uL [place] # (Auto) 400 (0-900) /uL Eos # (Auto) 100 (0-450) /uL Baso # (Auto) 0 (0-100) /uL PT 11.7 (10.1-12.7) SECONDS INR 1.0 (0.9-1.3) APTT 24 L (26.4-36.2) SECONDS Sodium 136 L (137-145) mmol/L Potassium 3.8 (3.4-5.1) mmol/L Chloride 101 (98-107) mmol/L Carbon Dioxide 25 (22-32) mmol/L BUN 17 (7-17) mg/dL Creatinine 0.70 (0.52-1.04) mg/dL Estimated GFR > 60.0 (>60) mL/min BUN/Creatinine Ratio 24.3 H (6-22) Glucose 90 (80-110) mg/dL Calcium 8.8 (8.4-10.2) mg/dL Total Bilirubin 0.2 (0.2-1.3) mg/dL AST 30 (14-36) IU/L ALT 27 (9-52) IU/L Alkaline Phosphatase 83 (38-126) U/L Total Protein 6.6 (6.3-8.2) g/dL Albumin 3.7 (3.5-5.0) g/dL Globulin 2.9 (1.7-4.1) g/dL Albumin/Globulin Ratio 1.3 (1.0-2.8) Lipase 123 (23-300) U/L Point of care testing: Urine Dip Bedside Urine Glucose Negative Bedside Urine Bilirubin - Negative Bedside Urine Ketone +/- 5 Urine Specific [place] 1.020 Bedside Urine Occult Blood - Negative Bedside Urine pH 6.0 Bedside Urine Protein +/- 15 Bedside Urine Urobilinogen - Negative Bedside Urine Nitrite - Negative Bedside Urine Leukocytes - Negative Esterase <Checo Stewart MD - Last Filed: 11/10/18 23:24> Lab Data Lab Results 11/10/18 11/10/18 11/10/18 Range/Units 17:15 17:15 17:15 WBC 3.5 L (4.5-11.0) X10^3/uL RBC 3.97 L (4.0-5.2) X10^6/uL Hgb 10.5 L (12.0-16.0) g/dL Hct 32.0 L (36-46) % MCV 80.7 (80-100) fL MCH 26.4 (26-34) PG MCHC 32.7 (30-36) % RDW 14.1 (11.6-14.8) % Plt Count 402 H (150-400) X10^3/uL Neut % (Auto) 63.4 (50-75) % Lymph % (Auto) 21.5 L (25-40) % [place] % (Auto) 10.3 (3-14) % Eos % (Auto) 3.5 (2-4) % Baso % (Auto) 1.3 (0-2) % Neut # (Auto) 2200 (6819-0611) /uL Lymph # (Auto) 700 L (4504-5764) /uL [place] # (Auto) 400 (0-900) /uL Eos # (Auto) 100 (0-450) /uL Baso # (Auto) 0 (0-100) /uL PT 11.7 (10.1-12.7) SECONDS INR 1.0 (0.9-1.3) APTT 24 L (26.4-36.2) SECONDS Sodium 136 L (137-145) mmol/L Potassium 3.8 (3.4-5.1) mmol/L Chloride 101 (98-107) mmol/L Carbon Dioxide 25 (22-32) mmol/L BUN 17 (7-17) mg/dL Creatinine 0.70 (0.52-1.04) mg/dL Estimated GFR > 60.0 (>60) mL/min BUN/Creatinine Ratio 24.3 H (6-22) Glucose 90 (80-110) mg/dL Calcium 8.8 (8.4-10.2) mg/dL Total Bilirubin 0.2 (0.2-1.3) mg/dL AST 30 (14-36) IU/L ALT 27 (9-52) IU/L Alkaline Phosphatase 83 (38-126) U/L Total Protein 6.6 (6.3-8.2) g/dL Albumin 3.7 (3.5-5.0) g/dL Globulin 2.9 (1.7-4.1) g/dL Albumin/Globulin Ratio 1.3 (1.0-2.8) Lipase 123 (23-300) U/L Point of care testing: Urine Dip Bedside Urine Glucose Negative Bedside Urine Bilirubin - Negative Bedside Urine Ketone +/- 5 Urine Specific [place] 1.020 Bedside Urine Occult Blood - Negative Bedside Urine pH 6.0 Bedside Urine Protein +/- 15 Bedside Urine Urobilinogen - Negative Bedside Urine Nitrite - Negative Bedside Urine Leukocytes - Negative Esterase Discharge Plan Departure Patient Disposition: Home Clinical Impression: Ascites Qualifiers: Ascites type: malignant Qualified Code(s): R18.0 - Malignant ascites Abdominal pain Qualifiers: Abdominal location: generalized Qualified Code(s): R10.84 - Generalized abdom inal pain Discharge Date/Time: 11/10/18 21:04 Interventions: ED Discharge Assessment Last Done: 11/10/18 21:03 Instructions: DI for Ascites Activity Restrictions/Additional Instructions: Please return as we talked about if you have acutely worsening symptoms or new symptoms such as vomiting or fever. Otherwise, the plan is for radiology to call you tomorrow morning between about 8 and 8:30 to give you a time to drain some of the fluid off your abdomen. This should help you feel better and also they will be able to send the fluid for diagnosis so that they can determine whether this is related to your cancer or some other cause. Please call them (I have circled the number on the order sheet I gave you) if you have not heard from them by 8:45 a.m. You can take the pain medicine oxycodone/acetaminophen that we gave you tonight 1 tablet up to every 4 hours as needed since it seems to have helped you quite a bit. Do not drive with that as it could make you sleepy. Please get in touch with the cancer center tomorrow and let them know that you were in the emergency room as they may want to see you earlier than planned Prescriptions: No Action [MARIJUANA CAPSULES] 1 cap PO BEDTIME PRN (Reason: sleep or pain) Qty: 0 RF: 0 Excedrin Migraine 250-250-65 mg Tablet 1 tab PO Q4-6H PRN (Reason: Pain (Scale Score 1-3)) RF: 0 Referrals: Juan Storey MD [Primary Care Provider] - Karen Horne MD [Physician] - <Checo Stewart MD - Last Filed: 11/10/18 23:24> Cosign ED Attending Cosignature Attestation: I was present in the ER at the time this patient's care. I was available for consultation if needed. I agree with the assessment and treatment plan.
[2018-11-10 17:22] LABS: Add Manual Diff / Slide Review NO; Basophils Absolute Auto 0 /uL (0-100); Basophils Percent Auto 1.3 % (0-2); Eosinophils Absolute Auto 100 /uL (0-450); Eosinophils Percent Auto 3.5 % (2-4); Hemoglobin 10.5 g/dL (12.0-16.0); Lymphocytes Absolute Auto 700 /uL (1100-4500); Lymphocytes Percent Auto 21.5 % (25-40); Mean Corpuscular HGB Conc 32.7 % (30-36); Mean Corpuscular Hemoglobin 26.4 PG (26-34); Mean Corpuscular Volume 80.7 fL (80-100); Monocytes Absolute Auto 400 /uL (0-900); Monocytes Percent Auto 10.3 % (3-14); Neutrophils Absolute Auto 2200 /uL (1500-7000); Neutrophils Percent Auto 63.4 % (50-75); Platelet Count 402 X10^3/uL (150-400); Red Blood Cell Count 3.97 X10^6/uL (4.0-5.2); Red Cell Distribution Width 14.1 % (11.6-14.8); White Blood Cell Count 3.5 X10^3/uL (4.5-11.0)
--- NOTE | 2018-11-10 17:28 | DI.US.S_ITS ---
PROCEDURE: US ABDOMEN COMPLETE INDICATIONS: Increasing abdominal distention/discomfort, history of cancer. TECHNIQUE: Real-time scanning was performed of the abdominal and retroperitoneal organs, with image documentation. COMPARISON: [facility], CT, CT CHEST ABD PEL W CON, 03/27/2018, 11:08. [facility], US, AXILLARY ONLY, 09/02/2016, 9:57. FINDINGS: Liver: Liver demonstrates a mildly nodular contour, which can be seen with cirrhosis. There is a 2.5 cm hyperechoic mass within the posterior right hepatic lobe. Gallbladder: There is minimal gallbladder wall thickening at 3 mm, possibly reactive to adjacent ascites. No cholelithiasis or other findings of acute cholecystitis. Negative sonographic Weber's sign per care partner. Biliary ducts: Intrahepatic bile ducts are non-dilated. Extrahepatic bile duct caliber measures 6 mm. Pancreas: There is mild dilatation of the pancreatic duct at 3 mm. The pancreatic head is otherwise unremarkable. The pancreatic body and talar obscured by overlying bowel gas. Spleen: Spleen is normal in size and homogeneous in echotexture. Spleen measures 10.6 cm in long axis. Kidneys: Right kidney measures 9.3 cm in long axis. There is mild right pelviectasis without armand hydronephrosis. Left kidney measures 9.2 cm in long axis. No left hydronephrosis. Aorta: Proximal abdominal aorta is nondilated at 2.1 cm. The mid abdominal aorta and distal abdominal aorta are obscured by overlying bowel gas. Iliacs: Not seen on this exam. IVC: Not well-seen on this exam. Miscellaneous: Large volume ascites. IMPRESSION: 1. Focal 2.5 cm hyperechoic mass in the posterior right hepatic lobe, correlating with the mass seen on comparison CT of 03/27/2018 and consistent with known metastatic disease. Mildly nodular liver contour, which can be seen with cirrhosis. 2. Minimal gallbladder wall thickening at 3 mm in greatest thickness, likely reactive to adjacent ascites. No other ultrasound findings of acute cholecystitis identified. No common bile duct dilatation. 3. Mild right renal pelviectasis without armand hydronephrosis. 4. Large volume ascites. Dictated by: Danny Piedra M.D. on 11/10/2018 at 19:35 Approved by: Danny Piedra M.D. on 11/10/2018 at 19:43
[2018-11-10 17:31] LABS: Prothrombin Time 11.7 SECONDS (10.1-12.7)
[2018-11-10 17:33] LABS: PTT Partial Thromboplastin Tim 24 SECONDS (26.4-36.2)
[2018-11-10 17:37] LABS: Alanine Aminotransferase 27 IU/L (9-52); Albumin 3.7 g/dL (3.5-5.0); Albumin Globulin Ratio 1.3 (1.0-2.8); Alkaline Phosphatase 83 U/L (38-126); Aspartate Aminotransferase 30 IU/L (14-36); BUN Creatinine Ratio 24.3 (6-22); Bilirubin Total 0.2 mg/dL (0.2-1.3); Blood Urea Nitrogen 17 mg/dL (7-17); Calcium 8.8 mg/dL (8.4-10.2); Carbon Dioxide 25 mmol/L (22-32); Chloride 101 mmol/L (98-107); Estimated Glomerular Filt Rate > 60.0 mL/min (>60); Globulin 2.9 g/dL (1.7-4.1); Glucose 90 mg/dL (80-110); HEMOLYSIS < 15 (0-50); Lipase 123 U/L (23-300); Potassium 3.8 mmol/L (3.4-5.1); Sodium 136 mmol/L (137-145); Total Protein 6.6 g/dL (6.3-8.2)
[2018-11-10] MEDS: OXYCODONE/ACETAMINOPHEN 5/325 TABLET 1 TAB PO (17:53)
[2018-11-10 18:26] VITALS: BP 144/82; PULSE 79; RESP 15; O2SAT 100
[2018-11-10 19:51] VITALS: BP 129/66; PULSE 98; RESP 14; O2SAT 95
[2018-11-10] MEDS: OXYCODONE/APAP 5/325 PREPACK 1 BOTTLE MISC (20:55)
== END 2018-11-10 21:04 | disposition home or self-care (01) ==
PROVIDERS: Emergency Medicine; Emergency Provider Internal Medicine; Family Provider Obstetrics & Gynecology; PCP Family Medicine
DX: R18.0 Malignant ascites (principal); R10.84 Generalized abdominal pain; R14.0 Abdominal distension (gaseous)
CPT/HCPCS: 36591; 76700; 80053; 81003; 83690; 85025; 85610; 85730; 99282; 99284

== ENCOUNTER → 2018-11-11 10:44 | Outpatient (CLI) | payer MEDICARE, OTHER, SELFPAY ==
--- NOTE | 2018-11-11 | PATH_ITS ---
Note [facility] Accession Number: [id number] TESTS RESULT FLAG UNITS REF RANGE LAB Clinician Provided Cytology Information No. of containers..01 Other (Miscellaneous) [A] 01 ABDOMINAL FLUID DIAGNOSIS: [A] 02 ABDOMINAL FLUID POSITIVE FOR MALIGNANT CELLS. COMMENT As part of routine production quality analyst, Dr. Galdamez also reviewed this case and agrees with the diagnosis. Dr. Amezcua called [facility] and Dr. Horne's office to discuss results on 11/17/18. A limited panel of immunohistochemical stains were performed to characterize the cells of interest. All control stains showed appropriate reactivity. RESULTS: MIMA: Positive. MOC-31: Positive. WT-1: Positive. PAX 8: Positive. Interpretation: The immunophenotype is consistent with the patient's known diagnosis of high grade serous carcinoma. Pathologist ICD10: 02 C78.6 02 Nicolasa Amezcua MD, Pathologist NPI- [id number] Pacheco Pavon, Emergency Room Orderly (ASC) 01 80 CC, RED, CLOUDY /LCS FLAG LEGEND: L-Low Normal,H-High Normal,LL-Alert Low,HH-Alert High <-Panic Low,>-Panic High,A-Abnormal,AA-Critical Abnormal Performed at: 01 =Z [facility] [address] [place] [address] [address], [place] [address] Ernie Hernandez MD, 02 [facility] [address] [place] [id number] Nicolasa Amezcua MD, Specimen Comment: A courtesy copy of this report has been sent to Specimen Comment: [phone]. Performed at: 01 [facility] [address] [place] [address], [place], [place] [id number] MD Ernie Hernandez MD Phone: [phone]
--- NOTE | 2018-11-11 | DI.US.S_ITS ---
PROCEDURE: US PARACENTESIS INDICATIONS: METASTATIC CANCER TECHNIQUE: The indications, alternatives, benefits, risks, and complications of the procedure were explained to the patient. Written informed consent was obtained and placed in the chart. The abdomen and pelvis were examined sonographically, and an appropriate site was chosen for paracentesis. The skin was prepared and draped in the usual sterile fashion, and 1% lidocaine was infiltrated from the skin down through the peritoneal surface. A 19-gauge catheter-covered needle was then introduced into the peritoneal space, the catheter was advanced and the needle was withdrawn, and thereafter peritoneal fluid was withdrawn. The catheter was then removed and a dressing was applied. The fluid was discarded if the clinician did not order diagnostic testing of the fluid. COMPARISON: None. FINDINGS: Access site: Right lower pelvis Needle: One-Step centesis catheter with introducer needle. Fluid volume and description: Serosanguineous, 4200 cc. Fluid sent for diagnostic testing: For cytology, at the request of the ordering health care provider. Medications: 1% lidocaine for local anaesthesia. Complications: None. IMPRESSION: Successful ultrasound-guided paracentesis. Dictated by: Arvin Cunningham M.D. on 11/11/2018 at 13:46 Approved by: Arvin Cunningham M.D. on 11/11/2018 at 13:46
== END ==
PROVIDERS: Family Provider Obstetrics & Gynecology; PCP Family Medicine; Visit Provider Internal Medicine Hematology & Oncology
DX: C57.00 Malignant neoplasm of unspecified fallopian tube (principal); R18.0 Malignant ascites
CPT/HCPCS: 49083

== ENCOUNTER → 2018-11-16 12:40 | Oncology outpatient (ONC) | payer MEDICARE, OTHER, SELFPAY ==
[2018-03-24 14:54] VITALS: BP 142/80; PULSE 80; RESP 16; TEMP 36.4; O2SAT 100
--- NOTE | 2018-03-24 15:20 | ONC.PN ---
Assessment and Plan (1) Fallopian tube cancer, BRCA2 positive Problem details: 67-year-old woman with a history of recurrent fallopian tube cancer. She currently feels well but her CA 125 is increasing. Will plan on getting a CT scan of the chest and pelvis to further evaluate the status of her disease. If she does in fact have evidence of progression, treatment options would include additional chemotherapy. It appears that she was deering refractory. This standard options would include a taxane, but 1 could also consider Doxil or topotecan. Side effects of these were briefly reviewed. PARP inhibitor also could be considered. These have shown improvement time of progression survival in BRCA mutation carriers. She did express some interest in immunotherapy. I pointed out that this has not yet been approved for ovarian cancer although studies are ongoing. It may be approved in the not too distant future. Return to clinic here after her CT scan. Hopefully at that time a more definitive treatment plan can be made. 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 Surgical debulking September 2015 with positive washings. 2. Six cycles of dose dense carboplatin Taxol finishing March 2016. 3. Paclitaxel and bevacizumab for recurrence beginning in August 2016 for 2 cycles. 4. SBRT to 2 periaortic lymph nodes in October 2017. Interval history: Patient is a 67-year-old woman with a history of BRCA positive recurrence fallopian tube cancer. She feels well today. She has a little bit of achiness in the left flank area but it is not severe. Her appetite has been good. She denies any nausea or vomiting. Bowels have been moving normally. She denies any bloating or fullness. No shortness of breath or cough. She did have some neuropathy with her chemotherapy but denies any current numbness or tingling. She has not noted any adenopathy. She has been working with the [employer] to been following a ketogenic diet and has lost about 30 lb. She takes a number of vitamins and supplements. The only prescription is naltrexone. Her past medical history is notable for breast cancer diagnosed in 1990. She was treated with lumpectomy and radiation therapy. She took some chemotherapy, it sounds like it might have been CMF. She also had 5 years of tamoxifen finishing in 2003. Results - Imaging Additional studies: Procedures Injection of steroid (12/12/12) Injection or infusion of other therapeutic or prophylactic substance (12/12/12) Home Medications and Allergies Home Medications Medication Instructions Recorded Confirmed Type multivitamin [Multiple Vitamins] 1 cap PO QDAY #0 08/29/16 History [ARTECIN] 500 mg PO MONDAYS #0 02/10/17 History [BERBERINE] 500 mg #0 02/10/17 History [CALCIUM D/GLUCARATE] #0 02/10/17 History [GLUTATHIONE FORCE/DE] #0 02/10/17 History [RESERATROL SYNERGY] #0 02/10/17 History cholecalciferol (vitamin D3) 5,000 PO QDAY #0 02/10/17 History [Vitamin D3] [HOST DEF MUSHROOM IM] #0 05/19/17 History [KETOPRIME] #0 05/19/17 History [MERIVA] #0 05/19/17 History [MK-7] #0 05/19/17 History [RESTORE] #0 05/19/17 History [RHODIOLA] #0 05/19/17 History [VISCUM DAVID] 5 mg #0 05/19/17 History ascorbic acid (vitamin C) #0 05/19/17 History oregano oil mg PO #0 05/19/17 History [MARIJUANA CAPSULES] #0 08/06/17 History naltrexone 03/24/18 History Allergies Allergy/AdvReac Type Severity Reaction Status Date / Time erythromycin base AdvReac Unknown UPSET Unverified 11/05/17 13:08 [ERYTHROMYCIN BASE] STOMACH Exam Vital signs: Last Vital Signs Temp 97.5 F L 03/24/18 14:54 Pulse 80 03/24/18 14:54 Resp 16 03/24/18 14:54 BP 142/80 H 03/24/18 14:54 Pulse Ox 100 03/24/18 14:54 - Constitutional positive no acute distress, positive average body habitus - Routine HEENT Exam Head: Present: normocephalic, atraumatic Eye: Present: EOMI, PERRL. Absent: conjunctival icterus, scleral injection ENT: Present: mucous membranes moist, oropharynx clear, dentition normal - Routine Neck Exam Present: supple. Absent: lymphadenopathy, thyromegaly - Routine Respiratory Exam Present: Clear to auscultation bilaterally. Absent: rales, wheezes - Routine Cardiovascular Exam Present: RRR, S1, S2. Absent: murmur - Routine Abdominal Exam Present: soft, normoactive bowel sounds. Absent: tenderness, distended, organomegaly, mass - Routine Extremities Exam Absent: cyanosis, clubbing, edema - Routine Back/Spine Exam Back/Spine: Absent: paraspinal tenderness, vertebral tenderness - Routine Skin Exam Present: intact. Absent: erythema, rash - Routine Neurological Exam Present: alert, oriented X3 - Routine Psychiatric Exam Present: normal affect, normal thought process
[2018-03-24 15:54] LABS: Lactate Dehydrogenase 279 U/L (313-618)
[2018-03-24 15:58] LABS: C-Reactive Protein Quant < 0.5 mg/dL (<1.0)
[2018-03-24 17:12] LABS: Erythrocyte Sedimentation Rate 8 MM/HR (0-20)
[2018-03-28 14:54] LABS: Human HE4 Antigen 212 pmol/L
[2018-03-31 14:13] VITALS: BP 159/88; PULSE 87; RESP 19; TEMP 36.8; O2SAT 100
--- NOTE | 2018-03-31 14:39 | P.PNONC_ITS ---
Assessment and Plan (1) Fallopian tube cancer, BRCA2 positive Problem details: 67-year-old woman with a history of recurrent fallopian tube cancer. She currently feels well but her CA [address] scan shows evidence of progression with increase in the size of her previous radiated masses. In addition she has new adenopathy. Reviewed treatment options today. Given the number of these lesions, I do not think that the re- operation or radiation are likely to be helpful. Standard chemotherapy options would be Doxil or topotecan. Doxil be given intravenously once every 4 weeks. Primary side effects would be mucocutaneous. I would have a low risk for cardiac toxicity, alopecia, nausea or vomiting or cytopenias. Topotecan would primarily have side effects of cytopenias and fatigue. Other also be risk for constipation rash or flu-like illness. Response rate, time to progression survival are virtually identical. She would prefer to avoid mucocutaneous toxicity in would therefore favor the topotecan. We will plan on starting as soon as can be practically arranged. She will need to have a port placed. If she fails to respond, I think a PARP inhibitor would be her next therapy option. 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 Surgical debulking September 2015 with positive washings. 2. Six cycles of dose dense carboplatin Taxol finishing March 2016. 3. Paclitaxel and bevacizumab for recurrence beginning in August 2016 for 2 cycles. 4. SBRT to 2 periaortic lymph nodes in October 2017. Interval history: Patient is a 67-year-old woman with a history of BRCA positive recurrence fallopian tube cancer. Since her last visit here, she has continued to feel well. She denies any abdominal pain. She is not having any nausea or vomiting. Appetite and energy level have been stable. She has not noted any bloating or fullness. Bowels have been moving normally. She denies any fevers or chills. No shortness of breath or cough. She denies any other changes in her health. The only prescription is naltrexone. Her past medical history is notable for breast cancer diagnosed in 1990. She was treated with lumpectomy and radiation therapy. She took some chemotherapy, it sounds like it might have been CMF. She also had 5 years of tamoxifen finishing in 2003. Results - Labs Laboratory Last Values ESR 8 MM/HR (0-20) 03/24/18 15:30 Lactate Dehydrogenase 279 U/L (313-618) L 03/24/18 15:30 C-Reactive Protein < 0.5 mg/dL (<1.0) 03/24/18 15:30 HE4 Ovarian Ca Marker 212 pmol/L A 03/24/18 15:30 - Imaging CT scan - abdomen: image reviewed CT scan - pelvis: image reviewed (CT scan showed increase in the size of her previous mass near the right hepatic lobe and right kidney. There were new masses adjacent to the right hepatic lobe along the mesenteric border, and enlarging left iliac lymph node with a smaller left periaortic lymph node. There is also a 3.9 cm hypoattenuating mass in the left pelvis.) Additional studies: Procedures Injection of steroid (12/12/12) Injection or infusion of other therapeutic or prophylactic substance (12/12/12) Home Medications and Allergies Home Medications Medication Instructions Recorded Confirmed Type multivitamin [Multiple Vitamins] 1 cap PO QDAY #0 08/29/16 03/31/18 History [ARTECIN] 500 mg PO MONDAYS #0 02/10/17 History [BERBERINE] 500 mg #0 02/10/17 History [CALCIUM D/GLUCARATE] #0 02/10/17 History [GLUTATHIONE FORCE/DE] #0 02/10/17 History [RESERATROL SYNERGY] #0 02/10/17 History cholecalciferol (vitamin D3) 5,000 tab PO QDAY #0 02/10/17 03/31/18 History [Vitamin D3] [HOST DEF MUSHROOM IM] #0 05/19/17 History [KETOPRIME] #0 05/19/17 History [MERIVA] #0 05/19/17 History [MK-7] #0 05/19/17 History [RESTORE] #0 05/19/17 History [RHODIOLA] #0 05/19/17 History [VISCUM DAVID] 5 mg #0 05/19/17 History ascorbic acid (vitamin C) #0 05/19/17 History oregano oil mg PO #0 05/19/17 History [MARIJUANA CAPSULES] #0 08/06/17 History naltrexone 03/24/18 History Allergies Allergy/AdvReac Type Severity Reaction Status Date / Time erythromycin base AdvReac Unknown UPSET Verified 03/31/18 14:15 [ERYTHROMYCIN BASE] STOMACH Exam Vital signs: Last Vital Signs Temp 98.2 F 03/31/18 14:13 Pulse 87 03/31/18 14:13 Resp 19 03/31/18 14:13 BP 159/88 H 03/31/18 14:13 Pulse Ox 100 03/31/18 14:13 - Constitutional positive no acute distress, positive average body habitus
--- NOTE | 2018-03-31 15:13 | ONC.NAV ---
Description: Check-in Activity: Pt indicated a (7) on her distress screening, expressing high anxiety and worry. She is here today to find out the results of her recent CT scan, and is understandably concerned. 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 No immediate needs were identified at this time.
--- NOTE | 2018-04-02 07:52 | PM.CHEMOCOU ---
Chemotherapy Counseling - History of present illness History of present illness: Anastasiya is a 67-year-old female with a history of recurrent fallopian tube cancer, BRCA positive.. She is currently feeling well however CA [address] scan demonstrated evidence of progression with increase in size of previously radiated masses. Additionally, she has new adenopathy. Two thousand sixteen patient underwent surgical debulking with positive washings. Subsequently 6 cycles of dose dense carboplatin Taxol with last infusion March of 2016. First recurrence August of 2016 Paclitaxol and bevacizumab The pt met in consultation with oncologist Dr Kim and plan is to move forward with Topotecan. - General New Chemotherapy Patient: Yes Treatment Plan Reviewed: yes - Chemotherapy Counseling Chemotherapy Counseling: Chemotherapy Education: Anastasiya Aguilera provided written information on all topics discussed. Written materials printed from [email or web address] and [email or web address]. Anastasiya was given an overview of cancer and mechanism of action of cancer cells, that cancer is caused by cells that are dividing rapidly, and out of control. Traditional chemotherapy works by targeting the fast dividing cells and killing them. Chemotherapy affecting healthy cells dividing quickly causes many of the side effects (hair follicles, bone marrow, mucus membranes). Overview of blood cell functions of white cells to fight infection, red cells to carry oxygen, and platelets to stop bleeding was discussed, and that when bone marrow is affected by chemo, there is a decrease in production of these cells. Home care of the patient following chemotherapy was discussed. Body fluids will be contaminated for 48 hours following treatment, and any body fluids handled by caregivers should be handled wearing gloves, surfaces need to be cleaned with soap and water, any soiled linens or clothing need to be washed separately in hot water, toilet lid should be closed when flushing, person cleaning the toilet should wear gloves. How chemotherapy is administered by the RN?s in the clinic, that orders are double checked by pharmacy and checked again by two RN?s prior to administration. Nurses wear protective gear to prevent exposure to them of the chemotherapy agents which can also cause cancer. Cancer center information discussed and written hand out provided listing on-call oncologist available weekends and after hours triage R.N. hours and infusion room guide. New patient binder given to Anastasiya, which includes clinic names, phone numbers, clinic information, calendar, cancer glossary, and list of resources. Handout on advanced directives Common side effects of chemotherapy were discussed with self care tips for prevention of complications. Information also provided in writing. These included: Low blood counts (anemia, thrombocytopenia, neutropenia) Hair loss (alopecia) Nausea and vomiting Decreased appetite Loss of fertility Diarrhea Mouth sores Constipation Peripheral neuropathy Chemo brain/cognitive changes Fatigue Instructions on when to call your healthcare team or on-call physician immediately: Fever of 100.4 or higher, chills, any signs of infection Shortness of breath, wheezing, difficulty breathing, closing of throat, swelling of face, hives (signs of possible allergic reaction) Chest pain, fast heart beat or feelings of a different heart rhythm Swelling of an extremity with or without pain signs of stroke Instructions on when to call your healthcare team within the next 24 hours Nausea that interferes with ability to eat and unrelieved with prescribed medication Diarrhea (4-6 episodes in 24 hour period). Unusual bleeding or bruising Black or tarry stools, or blood in your stools Blood in the urine pain or burning with urination Extreme fatigue (unable to perform self-care activities) Mouth sores or sore areas in your mouth Bad headache Dizziness or lightheadedness Large weight gain over a short period of time General self-care tips while undergoing treatment discussed were as follows. Written materials were provided covering in detail and additional self care tips. Drink at least 2-3 quarts (8-10 glasses) of no-caffeinated beverages daily unless you are instructed otherwise and empty your bladder frequently Report any concerning symptoms to your healthcare team Avoid crowds and sick people, wash your hands frequently Use a soft bristled toothbrush, rinse three times a day with 1 tsp baking soda or 1 tsp salt mixed with warm water Avoid any mouthwashes or oral and skin products containing alcohol or fragrances Use electric razors to avoid cutting yourself Avoid contact sports or activities that could cause head injury or bleeding Avoid sun exposure, wear SPF 15 or higher, wear protective clothing Get plenty of rest, meter your activities Maintain good nutrition Avoid alcoholic beverages Attend your scheduled appointments and lab draws Treatment regimen reviewed and medications were discussed with attention to specific side effects and self care for the pt?s treatment regimen which includes [recurrent fallopiam tube cancer]. Anastasiya was provided with literature regarding [topotecan] and common side effects. Additionally, Anastasiya was provided with literature regarding the diagnosis of [recurrent fallopian tube cancer]. Anastasiya instructed to read literature at home. Keep a list of questions which we are happy to go over at future visits. For any urgent questions please feel free to call any time.
--- NOTE | 2018-04-02 07:57 | P.CHEMO_ITS ---
Chemotherapy Counseling - History of present illness History of present illness: Anastasiya is a 67-year-old female with a history of recurrent fallopian tube cancer , BRCA positive.. She is currently feeling well however CA [address] scan demonstrated evidence of progression with increase in size of previously radiated masses. Additionally, she has new adenopathy. Two thousand sixteen patient underwent surgical debulking with positive washings. Subsequently 6 cycles of dose dense carboplatin Taxol with last infusion March of 2016. First recurrence August of 2016 Paclitaxol and bevacizumab The pt met in consultation with oncologist Dr Kim and plan is to move forward with Topotecan. - General New Chemotherapy Patient: Yes Treatment Plan Reviewed: yes - Chemotherapy Counseling Chemotherapy Counseling: Chemotherapy Education: Anastasiya Aguilera provided written information on all topics discussed. Written materials printed from www.[facility].[employer] and www.[facility].org. Anastasiya was given an overview of cancer and mechanism of action of cancer cells, that cancer is caused by cells that are dividing rapidly, and out of control. Traditional chemotherapy works by targeting the fast dividing cells and killing them. Chemotherapy affecting healthy cells dividing quickly causes many of the side effects (hair follicles, bone marrow, mucus membranes). Overview of blood cell functions of white cells to fight infection, red cells to carry oxygen, and platelets to stop bleeding was discussed, and that when bone marrow is affected by chemo, there is a decrease in production of these cells. Home care of the patient following chemotherapy was discussed. Body fluids will be contaminated for 48 hours following treatment, and any body fluids handled by caregivers should be handled wearing gloves, surfaces need to be cleaned with soap and water, any soiled linens or clothing need to be washed separately in hot water, toilet lid should be closed when flushing, person cleaning the toilet should wear gloves. How chemotherapy is administered by the RN?s in the clinic, that orders are double checked by pharmacy and checked again by two RN?s prior to administration. Nurses wear protective gear to prevent exposure to them of the chemotherapy agents which can also cause cancer. Cancer center information discussed and written hand out provided listing on- call oncologist available weekends and after hours triage R.N. hours and infusion room guide. New patient binder given to Anastasiya, which includes clinic names, phone numbers, clinic information, calendar, cancer glossary, and list of resources. Handout on advanced directives Common side effects of chemotherapy were discussed with self care tips for prevention of complications. Information also provided in writing. These included: Low blood counts (anemia, thrombocytopenia, neutropenia) Hair loss (alopecia) Nausea and vomiting Decreased appetite Loss of fertility Diarrhea Mouth sores Constipation Peripheral neuropathy Chemo brain/cognitive changes Fatigue Instructions on when to call your healthcare team or on-call physician immediately: Fever of 100.4 or higher, chills, any signs of infection Shortness of breath, wheezing, difficulty breathing, closing of throat, swelling of face, hives (signs of possible allergic reaction) Chest pain, fast heart beat or feelings of a different heart rhythm Swelling of an extremity with or without pain signs of stroke Instructions on when to call your healthcare team within the next 24 hours Nausea that interferes with ability to eat and unrelieved with prescribed medication Diarrhea (4-6 episodes in 24 hour period). Unusual bleeding or bruising Black or tarry stools, or blood in your stools Blood in the urine pain or burning with urination Extreme fatigue (unable to perform self-care activities) Mouth sores or sore areas in your mouth Bad headache Dizziness or lightheadedness Large weight gain over a short period of time General self-care tips while undergoing treatment discussed were as follows. Written materials were provided covering in detail and additional self care tips. Drink at least 2-3 quarts (8-10 glasses) of no-caffeinated beverages daily unless you are instructed otherwise and empty your bladder frequently Report any concerning symptoms to your healthcare team Avoid crowds and sick people, wash your hands frequently Use a soft bristled toothbrush, rinse three times a day with 1 tsp baking soda or 1 tsp salt mixed with warm water Avoid any mouthwashes or oral and skin products containing alcohol or fragrances Use electric razors to avoid cutting yourself Avoid contact sports or activities that could cause head injury or bleeding Avoid sun exposure, wear SPF 15 or higher, wear protective clothing Get plenty of rest, meter your activities Maintain good nutrition Avoid alcoholic beverages Attend your scheduled appointments and lab draws Treatment regimen reviewed and medications were discussed with attention to specific side effects and self care for the pt?s treatment regimen which includes [recurrent fallopiam tube cancer]. Anastasiya was provided with literature regarding [topotecan] and common side effects. Additionally, Anastasiya was provided with literature regarding the diagnosis of [ recurrent fallopian tube cancer]. Anastasiya instructed to read literature at home. Keep a list of questions which we are happy to go over at future visits. For any urgent questions please feel free to call any time.
--- NOTE | 2018-04-02 10:57 | ONC.NAV ---
Description: T/C re: missed appointment, continuity of care. Activity: This CASING CREW called pt to inquire as to why she did not show up for her chemo teaching appointment today, and why she did not go to her port placement appointment. She presented as angry and guarded, stating that I already had that teaching! CASING CREW explained that she had not yet had this teaching, and it was required to have in order for her to consent to treatment. She went on to say that she is seeking other opinions from Naturopaths right now, and was not interested in having cancer treatment at this time here at [facility]. FLORENTINO explained to her that we would be cancelling all of her appointments for chemo next week, and if she were to decide in the future to return, to give us a call. She became insistent that she wanted to keep getting her labs done here. FLORENTINO explained that unless she is seeing one of our providers, that we will not be able to do labs here for her Naturopaths. She replied that we need to give her the reports for her labs ongoingly to give to her Nutrition Teacher. FLORENTINO again reiterated that we would not be able to do labs for another provider without being involved in her treatment. She expressed understanding, and understood that she will need to initiate a new provider appointment with us in the future should she change her mind.
[2018-11-09 15:29] VITALS: BP 139/83; PULSE 90; RESP 16; TEMP 37.1; O2SAT 100
--- NOTE | 2018-11-09 15:32 | ONC.PN ---
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 Surgical debulking September 2015 with positive washings. 2. Six cycles of dose dense carboplatin Taxol finishing March 2016. 3. Paclitaxel and bevacizumab for recurrence beginning in August 2016 for 2 cycles. 4. SBRT to 2 periaortic lymph nodes in October 2017. Interval Events: After SBRT, she went to [facility] [place] and underent 3BP (3-bromopyruvate) treatment which she took for 5 weeks at [place]. She claimed that the right lower back pain disappeared, and she felt better. She was last seen here by Dr. Kim on 03/24/2018. The time patient's tumor marker CA [address] Kim recommended palliative chemotherapy with etoposide or Doxil. However patient refused. Patient said that she has felt very well on until recently about a month ago when she felt bloating and fullness of the abdomen. She herself said she knew it was ascites. Patient denies any nausea or vomiting. Patient does have or telida diarrhea and constipation. Yesterday she went to [facility] and underwent x-ray. According to patient, no blockage was identified. Patient had a laboratory tests at [facility]. Her CA125 was 19454. Patient said that she feels more tired than before with decreased appetite. She claimed that her weight has been stable. And she has lost weight on purpose. She denies any pain in the bones. Patient admits to some mild shortness of breath. She denies any cough she denies any chest pain. Of note, she has remote history of breast cancer diagnosed in 1995. She was treated with lumpectomy and radiation therapy. She took some chemotherapy, it sounds like it might have been CMF. She also had 5 years of tamoxifen completed in 1999. - Patient Self-Reported Symptoms SR Constitution: Fatigue/Malaise SR Gastrointestinal issues: Poor or no appetite, Diarrhea, Constipation, Blood in stool - Additional ROS All systems PM: reviewed and no additional remarkable complaints except as stated Home Medications and Allergies Home Medications Medication Instructions Recorded Confirmed Type [MARIJUANA CAPSULES] #0 08/06/17 History [id number]-[id number] 1 tab PO Q4-6H PRN 11/09/18 11/09/18 History [Excedrin Migraine] Allergies Allergy/AdvReac Type Severity Reaction Status Date / Time erythromycin base AdvReac Unknown UPSET Verified 04/15/18 13:22 [ERYTHROMYCIN BASE] STOMACH Exam Vital signs: Vital Signs Temp Pulse Resp BP Pulse Ox 11/09/18 15:29 98.8 F 90 16 139/83 100 Intake and Output 11/08/18 11/09/18 11/09/18 23:59 07:59 15:59 Other: Weight 59.4 kg Patient Weight 11/09/18 23:59 Weight 59.4 kg ECOG 1 Narrative: Gen: chronically ill, cachectic, NAD, cooperative, accompanied by her daughter and her . HEENT: NCAT, EOMI, PERRLA, anicteric sclera. Neck: Supple, No palpable thyromegaly or lymphadenopathy. Respiratory: CTAB, no wheezes audible. No JVD Cardiovascular: RRR, S1 and S2 normal, no M/G/R. Abdomen: Soft, mild discomfort on examination. an irregular mass palpable to the right of her umbilicus measuring 4-6 cm, fixed. shifting dullness noted with fljuid wave. Extremities: No LE pitting edema. Lymphatic: no palpable lymph nodes in the neck, axillae Neurological: AOx3, CN II-XII grossly intact. No focal motor or sensory deficit. She appears anxious. Results - Labs Laboratory Last Values ESR 8 MM/HR (0-20) 03/24/18 15:30 Lactate Dehydrogenase 279 U/L (313-618) L 03/24/18 15:30 C-Reactive Protein < 0.5 mg/dL (<1.0) 03/24/18 15:30 HE4 Ovarian Ca Marker 212 pmol/L A 03/24/18 15:30 - Imaging Additional studies: Procedures Injection of steroid (12/12/12) Injection or infusion of other therapeutic or prophylactic substance (12/12/12) Assessment and Plan (1) Fallopian tube cancer, BRCA2 positive 67-year-old woman with recurrent fallopian tube cancer. Clinically patient has developed fatigue, ascites, abdominal fullness with exceedingly high level of CA 125. 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 I talked with her that I would recommend palliative chemotherapy. I completely agree with Dr. Julio that we can try either etoposide or Doxil. We will obtain imaging studies after 2-3 cycles to evaluate the response to the treatment. I talked with her that chemotherapy is not a cure and the the goal is to delay the progression of the underlying malignancy. Next I also talked with the patient about the use of PARP inhibitor. I mentioned Rucaparib,and Olaparib. Patient said that she needs to have a family conference to decide about if she would like to proceed with chemotherapy and or PARP inhibitor. Meanwhile we will obtain scans to evaluate the extent of the disease as well as the need for possible paracentesis. Plan: 1. US abdomen 2. PET CT 3. Echocardiogram 4. RTC in one week.
--- NOTE | 2018-11-09 15:40 | P.PNONC_ITS ---
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 Surgical debulking September 2015 with positive washings. 2. Six cycles of dose dense carboplatin Taxol finishing March 2016. 3. Paclitaxel and bevacizumab for recurrence beginning in August 2016 for 2 cycles. 4. SBRT to 2 periaortic lymph nodes in October 2017. Interval Events: After SBRT, she went to [facility] at [place] and underent 3BP (3- bromopyruvate) treatment which she took for 5 weeks at [place]. She claimed that the right lower back pain disappeared, and she felt better. She was last seen here by Dr. Kim on 03/24/2018. The time patient's tumor marker CA [address] Kim recommended palliative chemotherapy with etoposide or Doxil. However patient refused. Patient said that she has felt very well on until recently about a month ago when she felt bloating and fullness of the abdomen. She herself said she knew it was ascites. Patient denies any nausea or vomiting. Patient does have or [place] diarrhea and constipation. Yesterday she went to [facility] and underwent x-ray. According to patient, no blockage was identified. Patient had a laboratory tests at [facility]. Her CA125 was 65525. Patient said that she feels more tired than before with decreased appetite. She claimed that her weight has been stable. And she has lost weight on purpose. She denies any pain in the bones. Patient admits to some mild shortness of breath. She denies any cough she denies any chest pain. Of note, she has remote history of breast cancer diagnosed in 1995. She was treated with lumpectomy and radiation therapy. She took some chemotherapy, it sounds like it might have been CMF. She also had 5 years of tamoxifen completed in 1999. - Patient Self-Reported Symptoms SR Constitution: Fatigue/Malaise SR Gastrointestinal issues: Poor or no appetite, Diarrhea, Constipation, Blood in stool - Additional ROS All systems PM: reviewed and no additional remarkable complaints except as stated Home Medications and Allergies Home Medications Medication Instructions Recorded Confirmed Type [MARIJUANA CAPSULES] #0 08/06/17 History [id number] 1 tab PO Q4-6H PRN 11/09/18 11/09/18 History [Excedrin Migraine] Allergies Allergy/AdvReac Type Severity Reaction Status Date / Time erythromycin base AdvReac Unknown UPSET Verified 04/15/18 13:22 [ERYTHROMYCIN BASE] STOMACH Exam Vital signs: Vital Signs Temp Pulse Resp BP Pulse Ox 11/09/18 15:29 98.8 F 90 16 139/83 100 Intake and Output 11/08/18 11/09/18 11/09/18 23:59 07:59 15:59 Other: Weight 59.4 kg Patient Weight 11/09/18 23:59 Weight 59.4 kg ECOG 1 Narrative: Gen: chronically ill, cachectic, NAD, cooperative, accompanied by her daughter and her . HEENT: NCAT, EOMI, PERRLA, anicteric sclera. Neck: Supple, No palpable thyromegaly or lymphadenopathy. Respiratory: CTAB, no wheezes audible. No JVD Cardiovascular: RRR, S1 and S2 normal, no M/G/R. Abdomen: Soft, mild discomfort on examination. an irregular mass palpable to the right of her umbilicus measuring 4-6 cm, fixed. shifting dullness noted with fljuid wave. Extremities: No LE pitting edema. Lymphatic: no palpable lymph nodes in the neck, axillae Neurological: AOx3, CN II-XII grossly intact. No focal motor or sensory deficit. She appears anxious. Results - Labs Laboratory Last Values ESR 8 MM/HR (0-20) 03/24/18 15:30 Lactate Dehydrogenase 279 U/L (313-618) L 03/24/18 15:30 C-Reactive Protein < 0.5 mg/dL (<1.0) 03/24/18 15:30 HE4 Ovarian Ca Marker 212 pmol/L A 03/24/18 15:30 - Imaging Additional studies: Procedures Injection of steroid (12/12/12) Injection or infusion of other therapeutic or prophylactic substance (12/12/12) Assessment and Plan (1) Fallopian tube cancer, BRCA2 positive 67-year-old woman with recurrent fallopian tube cancer. Clinically patient has developed fatigue, ascites, abdominal fullness with exceedingly high level of CA 125. 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 I talked with her that I would recommend palliative chemotherapy. I completely agree with Dr. Julio that we can try either etoposide or Doxil. We will obtain imaging studies after 2-3 cycles to evaluate the response to the treatment. I talked with her that chemotherapy is not a cure and the the goal is to delay the progression of the underlying malignancy. Next I also talked with the patient about the use of PARP inhibitor. I mentioned Rucaparib,and Olaparib. Patient said that she needs to have a family conference to decide about if she would like to proceed with chemotherapy and or PARP inhibitor. Meanwhile we will obtain scans to evaluate the extent of the disease as well as the need for possible paracentesis. Plan: 1. US abdomen 2. PET CT 3. Echocardiogram 4. RTC in one week.
--- NOTE | 2018-11-10 12:34 | PC.NURSE ---
Received phone call from Pharmacist at [facility] explaining that pt was having pain in her abdomen and needing pain medication called in from Dr. Horne. Pt was seen by Dr. Horne yesterday. Informed caller that this conventional underwriter would call pt to gather more information. Pharmacist further explained that he is also the pt's son in law. This conventional underwriter explained that Dr. Horne isn't in clinic today and would return , but assured son in law that this conventional underwriter would be placing a call to pt to further assess pt's pain and symptoms. After hanging up with son in law, this conventional underwriter received phone call from pt's daughter requesting pain medication. Explained to pt's daughter that I just spoke with the pt's son in law and I was in the process of calling pt to gather more information. This conventional underwriter called pt, and pt reports 5/10 pain to the abdomen. Explained the Dr. Horne is at [facility] today and that this conventional underwriter would attempt to get ahold of him for a RX for pain, further explained that if he prescribed a narcotic that a hard copy would have to be picked up from that office in order to fill RX. Pt states never mind, I'm just going to call my regular doctor. Pt has also seen Dr. Kim here at the clinic, this conventional underwriter explained that Dr. Kim could possibly write a RX, but again a hard copy would have to be picked up. Pt declined, stating I don't want to go over there, my regular doctor is right across the street from me. Pt currently in [place]. Pt further reports that abdomen is noticeably more distended since yesterday. Explained to pt that she may need to be evaluated in ER for pain management and possible paracentesis, pt states I'm at work right now. According to pt she did not want to go to the ER because it takes too long and she doesn't want to spend all day in the ER. Further explained that if evaluated in ER her pain could be addressed more promptly and if a paracentesis is ordered, that could also alleviate pain symptoms. Pt declined. States I understand. Phone call ended.
[2018-11-16 13:36] VITALS: BP 118/75; PULSE 85; RESP 16; TEMP 36.7; O2SAT 100
--- NOTE | 2018-11-16 13:36 | ONC.PN ---
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 Surgical debulking September 2015 with positive washings. 2. Six cycles of dose dense carboplatin Taxol finishing March 2016. 3. Paclitaxel and bevacizumab for recurrence beginning in August 2016 for 2 cycles. 4. SBRT to 2 periaortic lymph nodes in October 2017. After SBRT, she went to [facility] at [place] and underent 3BP (3-bromopyruvate) treatment which she took for 5 weeks at [place]. She claimed that the right lower back pain disappeared, and she felt better. She was last seen here by Dr. Kim on 03/24/2018. At that time, patient's tumor marker CA [address] Kim recommended palliative chemotherapy with etoposide or Doxil. However patient refused. Patient said that she has felt very well. But recently about a month ago when she felt bloating and fullness of the abdomen. She herself said she knew it was ascites. Patient denies any nausea or vomiting. Patient does have or [place] diarrhea and constipation. On 11/08/2018, [facility] and underwent x-ray. According to patient, no blockage was identified. Patient had a laboratory tests at [facility]. Her CA125 was 57027. Patient said that she feels more tired than before with decreased appetite. She claimed that her weight has been stable. And she has lost weight on purpose. She denies any pain in the bones. Patient admits to some mild shortness of breath. She denies any cough she denies any chest pain. Of note, she has remote history of breast cancer diagnosed in 1995. She was treated with lumpectomy and radiation therapy. She took some chemotherapy, it sounds like it might have been CMF. She also had 5 years of tamoxifen completed in 1999. Since her previous visit with me on 11/09/2018. she was seen at ER for abdominal fullness. she underwent paracentesis last (11/11/2018) with drainage of 4.2 liters of ascites. Cytology pending. She felt better immediately after the paracetesis. But she said that her ascites seems to be coming back and puffy. She feels tired. No fever and no chills. - Patient Self-Reported Symptoms SR Constitution: Fatigue/Malaise SR Gastrointestinal issues: Poor or no appetite, Diarrhea, Constipation, Blood in stool - Additional ROS All systems PM: reviewed and no additional remarkable complaints except as stated Home Medications and Allergies Home Medications Medication Instructions Recorded Confirmed Type [MARIJUANA CAPSULES] 1 cap PO BEDTIME PRN #0 08/06/17 11/16/18 History nknlxhg-fepaezpatlykp-sqnmynxd 1 tab PO Q4-6H PRN 11/09/18 11/16/18 History [Excedrin Migraine] oxycodone-acetaminophen 1 tab PO Q4-6H PRN #60 tab 11/16/18 Rx Allergies Allergy/AdvReac Type Severity Reaction Status Date / Time erythromycin base AdvReac Unknown UPSET Verified 04/15/18 13:22 [ERYTHROMYCIN BASE] STOMACH Exam Vital signs: Last Vital Signs Temp 98.0 F 11/16/18 13:36 Pulse 85 11/16/18 13:36 Resp 16 11/16/18 13:36 BP 118/75 11/16/18 13:36 Pulse Ox 100 11/16/18 13:36 ECOG 2 Narrative: Gen: chronically ill, cachectic, NAD, cooperative, accompanied by her . HEENT: NCAT, EOMI, PERRLA, anicteric sclera. Neck: Supple, No palpable thyromegaly or lymphadenopathy. Respiratory: CTAB, no wheezes audible. No JVD Cardiovascular: RRR, S1 and S2 normal, no M/G/R. Abdomen: Soft, mild discomfort on examination. an irregular mass palpable to the right of her umbilicus measuring 4-6 cm, fixed. shifting dullness noted with fluid wave. Extremities: No LE pitting edema. Lymphatic: no palpable lymph nodes in the neck, axillae Neurological: AOx3, CN II-XII grossly intact. No focal motor or sensory deficit. She appears anxious. Results - Labs Laboratory Last Values ESR 8 MM/HR (0-20) 03/24/18 15:30 Lactate Dehydrogenase 279 U/L (313-618) L 03/24/18 15:30 C-Reactive Protein < 0.5 mg/dL (<1.0) 03/24/18 15:30 HE4 Ovarian Ca Marker 212 pmol/L A 03/24/18 15:30 - Imaging Additional studies: Procedures Injection of steroid (12/12/12) Injection or infusion of other therapeutic or prophylactic substance (12/12/12) Assessment and Plan (1) Fallopian tube cancer, BRCA2 positive 67-year-old woman with recurrent fallopian tube cancer. Clinically patient has developed fatigue, ascites, abdominal fullness with exceedingly high level of CA 125. 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 I talked with her that I would recommend palliative chemotherapy. During her previous visit, I talked about chemotherapy with either etoposide or doxil. Patient was undetermined. Today, she expresses her intention to move quickly to chemotherapy. I told her and her family that the chemotherapy is palliative and will not cure her follopian tube cancer. It may delay the progression of her disease. I have tentatively scheduled to be started next Friday after she under echo study. Plan: 1. Pending Echocardiogram this week 3. US guided paracentesis ordered. 4. RTC in one week, Doxil 40 mg/m2, day 1 every 28 days.
--- NOTE | 2018-11-19 16:18 | ONC.SCHED ---
left voicemail for patient to reschedule her appt per message left with
--- NOTE | 2018-11-23 08:26 | ONC.PN ---
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 Surgical debulking September 2015 with positive washings. 2. Six cycles of dose dense carboplatin Taxol finishing March 2016. 3. Paclitaxel and bevacizumab for recurrence beginning in August 2016 for 2 cycles. 4. SBRT to 2 periaortic lymph nodes in October 2017. After SBRT, she went to [facility] at [place] and underent 3BP (3-bromopyruvate) treatment which she took for 5 weeks at [place]. She claimed that the right lower back pain disappeared, and she felt better. She was last seen here by Dr. Kim on 03/24/2018. At that time, patient's tumor marker CA [address] Kim recommended palliative chemotherapy with etoposide or Doxil. However patient refused. Patient said that she has felt very well. But recently about a month ago when she felt bloating and fullness of the abdomen. She herself said she knew it was ascites. Patient denies any nausea or vomiting. Patient does have or [place] diarrhea and constipation. On 11/08/2018, she went to [facility] and underwent x-ray. According to patient, no blockage was identified. Patient had a laboratory tests at [facility]. Her CA125 was [address]506. Patient said that she feels more tired than before with decreased appetite. She claimed that her weight has been stable. And she has lost weight on purpose. She denies any pain in the bones. Patient admits to some mild shortness of breath. She denies any cough she denies any chest pain. Of note, she has remote history of breast cancer diagnosed in 1995. She was treated with lumpectomy and radiation therapy. She took some chemotherapy, it sounds like it might have been CMF. She also had 5 years of tamoxifen completed in 1999. Since her previous visit with me on 11/09/2018. she was seen at ER for abdominal fullness. she underwent paracentesis last (11/11/2018) with drainage of 4.2 liters of ascites. Cytology pending. She felt better immediately after the paracetesis. But she said that her ascites seems to be coming back and puffy. She feels tired. No fever and no chills. - Patient Self-Reported Symptoms SR Constitution: Fatigue/Malaise SR Gastrointestinal issues: Poor or no appetite, Diarrhea, Constipation, Blood in stool - Additional ROS All systems PM: reviewed and no additional remarkable complaints except as stated Home Medications and Allergies Home Medications Medication Instructions Recorded Confirmed Type [MARIJUANA CAPSULES] 1 cap PO BEDTIME PRN #0 08/06/17 11/16/18 History swkbnen-kaupgkzskoeqs-ptvykhct 1 tab PO Q4-6H PRN 11/09/18 11/16/18 History [Excedrin Migraine] oxycodone-acetaminophen 1 tab PO Q4-6H PRN #60 tab 11/16/18 Rx Allergies Allergy/AdvReac Type Severity Reaction Status Date / Time erythromycin base AdvReac Unknown UPSET Verified 04/15/18 13:22 [ERYTHROMYCIN BASE] STOMACH Results - Labs Laboratory Last Values ESR 8 MM/HR (0-20) 03/24/18 15:30 Lactate Dehydrogenase 279 U/L (313-618) L 03/24/18 15:30 C-Reactive Protein < 0.5 mg/dL (<1.0) 03/24/18 15:30 HE4 Ovarian Ca Marker 212 pmol/L A 03/24/18 15:30 - Imaging Additional studies: Procedures Injection of steroid (12/12/12) Injection or infusion of other therapeutic or prophylactic substance (12/12/12) Assessment and Plan (1) Fallopian tube cancer, BRCA2 positive 67-year-old woman with recurrent fallopian tube cancer. Clinically patient has developed fatigue, ascites, abdominal fullness with exceedingly high level of CA 125. 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 I talked with her that I would recommend palliative chemotherapy. During her previous visit, I talked about chemotherapy with either etoposide or doxil. Patient was undetermined. Today, she expresses her intention to move quickly to chemotherapy. I told her and her family that the chemotherapy is palliative and will not cure her follopian tube cancer. It may delay the progression of her disease. I have tentatively scheduled to be started next Friday after she under echo study. Plan: 1. Pending Echocardiogram this week 3. US guided paracentesis ordered. 4. RTC in one week, Doxil 40 mg/m2, day 1 every 28 days.
--- NOTE | 2018-11-23 16:43 | PC.NURSE ---
Message received on 11/19 and again on 11/23, stating that she would not be coming in today to see Dr Horne and to start her new treatment because she just finished doing some of the diagnostic tests that were ordered on this past Monday 11/20 and she is waiting to go see Dr Bazzi at [facility], for a second opinion. Per Pt, at is going to collaborate with Dr Horne on the best treatment plan/course of action. Pt is wondering where we are at in the referral process, as she has not been contacted by anyone from Dr Bazzi's office. She also would like Dr Horne to know that is why she did not come in today. Notes placed in his box as well as schedule/coordinators to follow up regarding referral.
--- NOTE | 2018-11-30 10:05 | PC.NURSE ---
Per sourcing analyst, Margaret, pt called and left message requesting need for paracentesis. Dr. Horne aware and placed order. Pt scheduled for paracentesis today at 12:40, pt aware.
--- NOTE | 2019-07-08 14:48 | ONC.MSW ---
Description: T/C from inquiring about status for starting Avastin Activity: RN from called wondering what is happening with the referral that they made to Dr. Kim for pt to begin Avastin therapy here at [facility]. This LICENSED AND CERTIFIED MIDWIFE was unable to locate the referral, and it had not been documented in the EMR. We eventually were able to get a copy of it from the chart room ged preparation teacher. LICENSED AND CERTIFIED MIDWIFE left a message on pt's phone requesting a return call to discuss the referral. Reviewed the faxed records, forwarded to scheduling to f/u with pt to schedule an urgent appt. time in order to get re-established with Dr. Kim and begin therapy.
== END ==
PROVIDERS: Family Provider Obstetrics & Gynecology; PCP Family Medicine; Visit Provider Internal Medicine Hematology & Oncology
DX: C57.00 Malignant neoplasm of unspecified fallopian tube (principal); R18.8 Other ascites; R53.83 Other fatigue; Z85.3 Personal history of malignant neoplasm of breast
CPT/HCPCS: 83615; 85651; 86140; 86305; 99214; 99215

== ENCOUNTER → 2018-11-18 13:22 | Outpatient (CLI) | payer MEDICARE, OTHER, SELFPAY ==
--- NOTE | 2018-11-18 13:24 | DI.US.S_ITS ---
PROCEDURE: US PARACENTESIS INDICATIONS: malignant ascites TECHNIQUE: The indications, alternatives, benefits, risks, and complications of the procedure were explained to the patient. Written informed consent was obtained and placed in the chart. The abdomen and pelvis were examined sonographically, and an appropriate site was chosen for paracentesis. The skin was prepared and draped in the usual sterile fashion, and 1% lidocaine was infiltrated from the skin down through the peritoneal surface. A 19-gauge catheter-covered needle was then introduced into the peritoneal space, the catheter was advanced and the needle was withdrawn, and thereafter peritoneal fluid was withdrawn. The catheter was then removed and a dressing was applied. The fluid was discarded if the clinician did not order diagnostic testing of the fluid. COMPARISON: [facility], PARACENTESIS, 11/11/2018, 11:15. FINDINGS: Access site: Right lower quadrant pelvic body wall Needle: One-Step centesis catheter with introducer needle. Fluid volume and description: 5000 cc of serosanguineous, with a slightly reduced degree of redness to the fluid. The fluid is generally minimally turbid, near clear. Fluid sent for diagnostic testing: Not requested. Medications: 1% lidocaine for local anaesthesia. Complications: None. IMPRESSION: Successful ultrasound-guided paracentesis, 5000 cc. Dictated by: Arvin Cunningham M.D. on 11/18/2018 at 15:17 Approved by: Arvin Cunningham M.D. on 11/18/2018 at 15:19
== END ==
PROVIDERS: Family Provider Obstetrics & Gynecology; PCP Family Medicine; Visit Provider Internal Medicine Hematology & Oncology
DX: C57.00 Malignant neoplasm of unspecified fallopian tube (principal); R18.0 Malignant ascites; Z15.01 Genetic susceptibility to malignant neoplasm of breast
CPT/HCPCS: 49083

== ENCOUNTER → 2018-11-20 07:58 | Outpatient (CLI) | payer MEDICARE, OTHER, SELFPAY ==
--- NOTE | 2018-11-20 08:01 | DI.ECHO.S_ITS ---
[place] [facility]---------+ [facility] +---------+ : : [address] : : : : [id number] : : : : Phone: [phone] Echocardiogram Report + + :Name: JOANN MARIO Study Date: 11/20/2018 Height: 65 in : :[facility] Weight: 131 lb : : Gender: Female BSA: 1.7 m2 : :: 1950 Age: 67 yrs BP: 110/74 mmHg: :Reason For Study: Pre Chemo (ICD Code V67.2) : : Performed By: Kortney Ugarte : :Referring: SRIDHAR PRUITT : + + Interpretation Summary The left ventricle is normal in size, wall thickness, and systolic function without any focal wall motion abnormalities. The ejection fraction is estimated to be 60-65%. Diastolic parameters suggest a relaxation abnormality of the left ventricle, consistent with probable normal filling pressures. The right ventricle is normal in size and function. The right ventricular systolic pressure is estimated to be at least 22 mmHg based on an estimated right atrial pressure of 3 mm Hg. Borderline left atrial enlargement. Right atrial size is normal. There is no significant valvular heart disease. The aortic root is normal size. Abdominal ascites present. Procedure: A two-dimensional transthoracic echocardiogram with color flow and Doppler was performed. The study quality was technically adequate. There is no prior echocardiogram noted for this patient. The patient was in normal sinus rhythm during the exam. Left Ventricle: The left ventricle is normal in size, wall thickness, and systolic function without any focal wall motion abnormalities. There is no ventricular septal defect visualized. The ejection fraction is estimated to be 60-65%. Diastolic parameters suggest a relaxation abnormality of the left ventricle, consistent with probable normal filling pressures. Right Ventricle: The right ventricle is normal in size and function. Atria: Borderline left atrial enlargement. Right atrial size is normal. There is no Doppler evidence for an interatrial shunt. Mitral Valve: There is mild mitral annular calcification. No obvious mitral regurgitation appreciated. Aortic Valve: The aortic valve is normal in structure and function. No aortic regurgitation is present. Tricuspid Valve: The tricuspid valve is normal in structure and function. There is mild tricuspid regurgitation. The right ventricular systolic pressure is estimated to be at least 22 mmHg based on an estimated right atrial pressure of 3 mm Hg. Pulmonic Valve: The pulmonic valve is normal in structure and function. There is a trace or physiologic amount of pulmonic regurgitation. There is no significant valvular heart disease. Great Vessels: The aortic root is normal size. The ascending aorta is normal in size. The aortic arch is normal in size. The IVC is of normal diameter and collapses greater than 50% with a sniff. This suggests a low right atrial pressure of 3 mm Hg. Pericardium/ Pleura There is no pericardial effusion. There is no pleural effusion. Abdominal ascites present. MMode/2D Measurements & Calculations LVIDd: 3.6 cm LVOT diam: 2.0 cm LVIDs: 1.9 cm Ao root diam: 3.4 cm FS: 46.1 % Aortic Jxn: 2.6 cm IVSd: 1.3 cm asc Aorta Diam: 3.1 cm LVPWd: 0.82 cm Ao Arch Diam (Prox Trans): 2.9 cm LV rodrigues. diameter/BSA (cm/m^2): 2.2 LV sys. diameter/BSA (cm/m^2): 1.2 LA A2 area: 21.7 cm2 RA long axis: 4.1 cm LA A4 area: 14.6 cm2 RA area: 13.1 cm2 LA length (vol): 4.9 cm RA vol: 35.6 ml LA vol: 55.3 ml RA : 21.5 ml/m2 LA vol index: 33.4 ml/m2 IVC diam: 1.4 cm TAPSE: 1.7 cm Doppler Measurements & Calculations Ao V2 max: 125.6 cm/sec LVOT Max August: 94.2 cm/sec Ao V2 mean: 88.1 cm/sec LV V1 max P.5 mmHg Ao max P.3 mmHg LV V1 VTI: 19.0 cm Ao mean P.5 mmHg TAHIR(I,D): 2.8 cm2 Ao V2 VTI: 20.5 cm TAHIR(V,D): 2.3 cm2 sev ratio: 0.93 TAHIR indexed to BSA (cm^2/m^2): 1.7 MV E max august: 49.8 cm/sec TR max august: 218.6 cm/sec MV A max august: 90.5 cm/sec TR max P.1 mmHg MV E/A: 0.55 PA V2 max: 92.6 cm/sec Med Peak E' August: 4.0 cm/sec PA V2 mean: 66.1 cm/sec E/E' med: 12.4 PA mean P.0 mmHg Lat Peak E' August: 8.2 cm/sec PA Accel Time: 0.06 sec E/E' lat: 6.1 E/e' average: 9.3 MV dec time: 0.31 sec MV P1/2t: 92.3 msec MV P1/2t max august: 50.0 cm/sec SV(LVOT): 58.0 ml MVA(2t): 2.4 cm2 Reading Physician:03:08 PM
== END ==
PROVIDERS: Family Provider Obstetrics & Gynecology; PCP Family Medicine; Visit Provider Internal Medicine Hematology & Oncology
DX: Z01.818 Encounter for other preprocedural examination (principal); I07.1 Rheumatic tricuspid insufficiency; C57.00 Malignant neoplasm of unspecified fallopian tube; R18.8 Other ascites; Z15.01 Genetic susceptibility to malignant neoplasm of breast
CPT/HCPCS: 93306

== ENCOUNTER → 2018-11-30 12:21 | Outpatient (CLI) | payer MEDICARE, OTHER, SELFPAY ==
--- NOTE | 2018-11-30 12:22 | DI.US.S_ITS ---
PROCEDURE: US PARACENTESIS INDICATIONS: ASCITIES TECHNIQUE: The indications, alternatives, benefits, risks, and complications of the procedure were explained to the patient. Written informed consent was obtained and placed in the chart. The abdomen and pelvis were examined sonographically, and an appropriate site was chosen for paracentesis. The skin was prepared and draped in the usual sterile fashion, and 1% lidocaine was infiltrated from the skin down through the peritoneal surface. A 19-gauge catheter-covered needle was then introduced into the peritoneal space, the catheter was advanced and the needle was withdrawn, and thereafter peritoneal fluid was withdrawn. The catheter was then removed and a dressing was applied. The fluid was discarded if the clinician did not order diagnostic testing of the fluid. COMPARISON: [facility], , PARACENTESIS, 11/18/2018, 13:47. FINDINGS: Access site: Right lateral abdomen Needle: One-Step centesis catheter with introducer needle. Fluid volume and description: 4700 mL, serous sanguinous Fluid sent for diagnostic testing: None requested Medications: 1% lidocaine for local anaesthesia. Complications: None. IMPRESSION: Successful ultrasound-guided paracentesis. Dictated by: Dena Lai M.D. on 11/30/2018 at 15:18 Approved by: Dena Lai M.D. on 11/30/2018 at 15:20
== END ==
PROVIDERS: Family Provider Obstetrics & Gynecology; PCP Family Medicine; Visit Provider Internal Medicine Hematology & Oncology
DX: C57.00 Malignant neoplasm of unspecified fallopian tube (principal); R18.8 Other ascites; Z15.01 Genetic susceptibility to malignant neoplasm of breast
CPT/HCPCS: 49083

== ENCOUNTER 2018-12-19 15:19 | Emergency (ER) | payer MEDICARE, OTHER, SELFPAY ==
--- NOTE | 2018-12-19 15:35 | DI.US.S_ITS ---
PROCEDURE: US ABDOMEN LIMITED INDICATIONS: ASCITIES; REJI FOR PARACENTESIS TECHNIQUE: Real-time focused scanning was performed of the abdomen, with image documentation. COMPARISON: [place], [place], [place] PET CT FUSION SKULL 2 THIGH, 11/18/2018, 15:41. [facility], [place], US ABDOMEN COMPLETE, 11/10/2018, 18:31. [facility], CT, CT CHEST ABD PEL W CON, 03/27/2018, 11:08. [place], [place], PET/CT SKULL BASE TO MID THIGH, 08/22/2017, 11:24. [facility], [place], [place] PARACENTESIS, 11/30/2018, 13:00. FINDINGS: The right lower quadrant was marked by the reading assistant at the site of the deepest pocket of ascites. The ascites is 1.1 cm deep from the skin surface. IMPRESSION: Ultrasound guided skin marking, for performance of a paracentesis. Dictated by: Jeff Prajapati M.D. on 12/19/2018 at 15:10 Approved by: Jeff Prajapati M.D. on 12/19/2018 at 15:11
[2018-12-19 15:37] VITALS: BP 134/76; PULSE 98; RESP 18; TEMP 36.8; O2SAT 99; BMI 22.8
--- NOTE | 2018-12-19 15:44 | ED_ITS ---
HPI - Abdominal Pain General Chief Complaint: Abdominal Pain Stated Complaint: states fluid collecting that needs to drain Time Seen by Provider: 12/19/18 15:35 Source: patient Mode of arrival: ambulatory Limitations: no limitations History of Present Illness HPI narrative: Patient is a 67-year-old female who presents with abdominal distention. She has known ascites unknown ovarian cancer. [facility] called to inform me that she was coming to the emergency department for paracentesis. She actually had paracentesis done 8 days ago where they removed 5.7 L. she feels like her abdomen is becoming more distended. She denies any fever. She is having increased pain. MD complaint: abdominal pain Related Data Home Medications Medication Instructions Recorded Confirmed [MARIJUANA CAPSULES] 1 cap PO BEDTIME PRN #0 08/06/17 11/16/18 beufcrh-uukasvqfqszei-bqzyqrfq 1 tab PO Q4-6H PRN 11/09/18 11/16/18 [Excedrin Migraine] Previous Rx's Medication Instructions Recorded oxycodone-acetaminophen 1 tab PO Q4-6H PRN #60 tab 11/16/18 Allergies Allergy/AdvReac Type Severity Reaction Status Date / Time erythromycin base AdvReac Unknown UPSET Verified 12/19/18 15:42 [ERYTHROMYCIN BASE] STOMACH Review of Systems Review of Systems ROS Unobtainable: All systems reviewed & are unremarkable except as noted in HPI and below Constitutional Denies chills, Denies fever(s), Denies lethargy and Denies weakness Eyes Denies change in vision, Denies eye discharge, Denies irritation and Denies loss of vision ENT Ears, Nose, Mouth, and Throat: Denies change in voice, Denies neck pain and Denies sore throat Cardiovascular Denies chest pain, Denies irregular heart rhythm, Denies lightheadedness, Denies palpitations, Denies dyspnea, Denies dyspnea on exertion and Denies orthopnea Respiratory Denies cough, Denies dyspnea, Denies dyspnea on exertion and Denies wheezing Gastrointestinal Gastrointestinal: Reports abdominal pain, Denies change in bowel habits, Denies diarrhea, Denies nausea and Denies vomiting Genitourinary Denies hematuria, Denies flank pain, Denies urinary incontinence and Denies urinary urgency Musculoskeletal Denies neck pain Integumentary/Breasts Denies pruritus, Denies erythema, Denies rash and Denies wounds Neurologic Denies loss of vision and Denies weakness Endocrine Denies palpitations Allergic/Immunologic Denies wheezing [facility] Medical History (Updated 12/19/18 @ 17:27 by Flower Pennington DO) Metastatic carcinoma (Acute) Anemia (Chronic) Hypertension (Chronic) Hypothyroidism (Chronic) Poor sleep (Chronic) Weight loss (Chronic) History of cellulitis (Resolved ~2012) Surgical History (Updated 11/23/18 @ 08:26 by Karen Horne MD) History of bilateral salpingo-oophorectomy (BSO) Status post appendectomy Status post breast lumpectomy Status post hysterectomy with oophorectomy (10/18/15) Status post laparoscopy (10/09/15) Status post tonsillectomy and adenoidectomy Status post tubal ligation Social History household members: spouse Smoking Status: Never smoker Social History household members: spouse Smoking Status: Never smoker Exam Initial Vital Signs Initial Vital Signs: Vital Signs Temperature 98.2 F 12/19/18 15:37 Pulse Rate 98 H 12/19/18 15:37 Respiratory Rate 18 12/19/18 15:37 Blood Pressure 134/76 12/19/18 15:37 Pulse Oximetry 99 12/19/18 15:37 GENERAL: Very well put together pleasant elderly female and in no acute distress. HEENT: Head atraumatic,EOMI, pupils reactive, CARDIOVASCULAR: Regular rate and rhythm without murmurs, rubs or gallops. RESPIRATORY: Breath sounds equal bilaterally, no wheezes rales or rhonchi. ABDOMEN: Distended abdomen soft mildly tender positive fluid wave EXTREMITIES: Normal range of motion, no clubbing or edema. Neurovascularly intact NEUROLOGICAL: Alert and oriented x4.Normal gait and speech. SKIN: Warm, dry, no laceration, no petechiae, no rashes or lesions. Procedures Paracentesis Time Out Performed: Yes Local Anesthetic: lidocaine 1% Amount of anesthesia used (mL): 5 Fluid: clear Post Procedure Exam: awake, alert, normal BP, normal HR and normal SpO2 Patient Tolerated Procedure: Well Complications: none Course Orders Ordered: ED Orders 12/19/18 15:35 US abdomen limited Stat 12/19/18 15:50 Complete Blood Count AUTO DIFF Stat Partial Thromboplastin Time Stat Prothrombin Time INR Stat Vital Signs - 8 hr 12/19/18 15:37 12/19/18 16:30 12/19/18 17:38 Temperature 98.2 F 99.1 F Pulse Rate 98 H 89 85 Respiratory Rate 18 16 Blood Pressure 134/76 115/66 Blood Pressure [Left Arm] 118/74 Pulse Oximetry 99 96 97 MDM - Abdominal Pain Lab Data Attestation: I reviewed the patient's lab results. Result diagrams: 12/19/18 15:50 Lab Results 12/19/18 12/19/18 Range/Units 15:50 15:50 WBC 5.4 (4.5-11.0) X10^3/uL RBC 4.41 (4.0-5.2) X10^6/uL Hgb 11.2 L (12.0-16.0) g/dL Hct 34.7 L (36-46) % MCV 78.6 L (80-100) fL MCH 25.4 L (26-34) PG MCHC 32.4 (30-36) % RDW 15.6 H (11.6-14.8) % Plt Count 584 H (150-400) X10^3/uL Neut % (Auto) 67.1 (50-75) % Lymph % (Auto) 15.4 L (25-40) % [place] % (Auto) 14.0 (3-14) % Eos % (Auto) 2.7 (2-4) % Baso % (Auto) 0.8 (0-2) % Neut # (Auto) 3600 (7865-1673) /uL Lymph # (Auto) 800 L (0693-1250) /uL [place] # (Auto) 800 (0-900) /uL Eos # (Auto) 100 (0-450) /uL Baso # (Auto) 0 (0-100) /uL PT 10.3 (10.1-12.7) SECONDS INR 0.9 (0.9-1.3) APTT 29 D (26.4-36.2) SECONDS Imaging Data US - abdomen: Radiologist's impression: PROCEDURE: US ABDOMEN LIMITED INDICATIONS: ASCITIES; REJI FOR PARACENTESIS TECHNIQUE: Real-time focused scanning was performed of the abdomen, with image do cumentation. COMPARISON: [facility], [place], [place] PET CT FUSION SKULL 2 THIGH, 11/18/2018, 15:41. [facility], [place], US ABDOMEN COMPLETE, 11/10/2018, 18:31. [facility], CT, CT CHEST ABD PEL W CON, 03/27/2018, 11:08. [facility], [place], PET/CT SKULL BASE TO MID THIGH, 08/22/2017, 11:24. [facility], [place] PARACENTESIS, 11/30/2018, 13:00. FINDINGS: The right lower quadrant was marked by the temper mill operator at the site of the deepest pocket of ascites. The ascites is 1.1 cm deep from the skin surface. IMPRESSION: Ultrasound guided skin marking, for performance of a paracentesis. Dictated by: Jeff Prajapati M.D. on 12/19/2018 at 15:10 MDM Narrative Medical decision making narrative: Patient tolerated procedure well. 2.2 L of fluid removed. Discussed with her scheduling future procedures. Discharge Plan Departure Patient Disposition: Home Clinical Impression: Ascites Qualifiers: Ascites type: malignant Qualified Code(s): R18.0 - Malignant ascites Discharge Date/Time: 12/19/18 17:35 Interventions: ED Discharge Assessment Last Done: 12/19/18 17:38 Instructions: Ascites Activity Restrictions/Additional Instructions: *You have been diagnosed with Ascites *What to do: Recommend scheduling to have paracentesis done. You had 2.2 L out today You may change dressing tomorrow *Continue to take medications as directed *Follow up with your primary care provider in 2-3 days *Return to ER if you should have a fever, redness, increased pain or any new, worsening or concerning symptoms Prescriptions: No Action [MARIJUANA CAPSULES] 1 cap PO BEDTIME PRN (Reason: sleep or pain) Qty: 0 RF: 0 Excedrin Migraine 250-250-65 mg Tablet 1 tab PO Q4-6H PRN (Reason: Pain (Scale Score 1-3)) RF: 0 oxycodone-acetaminophen 5-325 mg Tablet 1 tab PO Q4-6H PRN (Reason: fallopian ca, with ascites ) Qty: 60 RF: 0 Referrals: Reji Storey MD [Primary Care Provider] -
[2018-12-19 15:59] LABS: Add Manual Diff / Slide Review NO; Basophils Absolute Auto 0 /uL (0-100); Basophils Percent Auto 0.8 % (0-2); Eosinophils Absolute Auto 100 /uL (0-450); Eosinophils Percent Auto 2.7 % (2-4); Hematocrit 34.7 % (36-46); Hemoglobin 11.2 g/dL (12.0-16.0); Lymphocytes Absolute Auto 800 /uL (1100-4500); Lymphocytes Percent Auto 15.4 % (25-40); Mean Corpuscular HGB Conc 32.4 % (30-36); Mean Corpuscular Hemoglobin 25.4 PG (26-34); Mean Corpuscular Volume 78.6 fL (80-100); Monocytes Absolute Auto 800 /uL (0-900); Neutrophils Absolute Auto 3600 /uL (1500-7000); Neutrophils Percent Auto 67.1 % (50-75); Platelet Count 584 X10^3/uL (150-400); Red Blood Cell Count 4.41 X10^6/uL (4.0-5.2); Red Cell Distribution Width 15.6 % (11.6-14.8); White Blood Cell Count 5.4 X10^3/uL (4.5-11.0)
[2018-12-19 16:06] LABS: INR 0.9 (0.9-1.3); Prothrombin Time 10.3 SECONDS (10.1-12.7)
[2018-12-19 16:09] LABS: PTT Partial Thromboplastin Tim 29 SECONDS (26.4-36.2)
[2018-12-19 16:30] VITALS: BP 118/74; PULSE 89; O2SAT 96
[2018-12-19 17:38] VITALS: BP 115/66; PULSE 85; RESP 16; TEMP 37.3; O2SAT 97
== END 2018-12-19 17:35 | disposition home or self-care (01) ==
PROVIDERS: Emergency Provider Emergency Medicine; PCP Family Medicine
DX: R18.0 Malignant ascites (principal)
CPT/HCPCS: 36591; 49082; 76705; 85025; 85610; 85730; 99283; 99284

== ENCOUNTER → 2018-12-23 07:45 | Outpatient (CLI) | payer MEDICARE, OTHER, SELFPAY ==
--- NOTE | 2018-12-23 07:46 | DI.US.S_ITS ---
PROCEDURE: US ABDOMEN LIMITED INDICATIONS: ASCITIES TECHNIQUE: Real-time focused scanning was performed of the abdomen, with image documentation. COMPARISON: [facility], , ABDOMEN LIMITED, 12/19/2018, 15:39. FINDINGS: The amount of ascites present is less than has been previously the case, and the patient also was experiencing relatively severe nausea and emesis episodically while preparing for paracentesis. Change in position resulted in bowel loops shifting into an area quite near the intended access site for paracentesis today. Given the nausea, vomiting, and reduced quantity of fluid and change in positioning of bowel loops reducing safety of needle access it was decided to defer and the paracentesis until Friday morning. IMPRESSION: Nausea, emesis, and reduced amount of ascites resulted in a decision to defer paracentesis until Friday morning this week. Dictated by: Arvin Cunningham M.D. on 12/23/2018 at 8:55 Approved by: Arvin Cunningham M.D. on 12/23/2018 at 8:57
--- NOTE | 2018-12-23 11:55 | PC.NURSE ---
At 0830 AM Pt's , Ed walked back to PA desk requesting a pain medication refill for Anastasiya following her Paracentesis this morning. Pt has been receiving care at [facility] and has not been seen at [facility] [[email or web address]] since October,. Dr. Horne stated he needed to see her before prescribing RX. Offered for Anastasiya to use an exam room to lay down and we would do our best to fit her in this morning in between patients as there are no openings today or tomorrow. Ed left to ask Anastasiya what she wanted to do and he did not come back.
== END ==
PROVIDERS: PCP Family Medicine; Visit Provider Internal Medicine Hematology & Oncology
DX: C57.00 Malignant neoplasm of unspecified fallopian tube (principal); R18.8 Other ascites; R11.2 Nausea with vomiting, unspecified; Z15.01 Genetic susceptibility to malignant neoplasm of breast
CPT/HCPCS: 76705

== ENCOUNTER → 2018-12-25 07:40 | Outpatient (CLI) | payer MEDICARE, OTHER, SELFPAY ==
--- NOTE | 2018-12-25 | DI.US.S_ITS ---
PROCEDURE: US PARACENTESIS INDICATIONS: ASCITIES TECHNIQUE: The indications, alternatives, benefits, risks, and complications of the procedure were explained to the patient. Written informed consent was obtained and placed in the chart. The abdomen and pelvis were examined sonographically, and an appropriate site was chosen for paracentesis. The skin was prepared and draped in the usual sterile fashion, and 1% lidocaine was infiltrated from the skin down through the peritoneal surface. A 19-gauge catheter-covered needle was then introduced into the peritoneal space, the catheter was advanced and the needle was withdrawn, and thereafter peritoneal fluid was withdrawn. The catheter was then removed and a dressing was applied. The fluid was discarded if the clinician did not order diagnostic testing of the fluid. COMPARISON: [facility], PARACENTESIS, 11/30/2018, 13:00. [facility], PARACENTESIS, 11/18/2018, 13:47. FINDINGS: Access site: Right anterolateral lower pelvic body wall. Needle: One-Step centesis catheter with introducer needle. Fluid volume and description: 5000 cc, clear serous fluid Fluid sent for diagnostic testing: Not requested Medications: 1% lidocaine for local anaesthesia. Complications: None. IMPRESSION: Successful ultrasound-guided paracentesis. Dictated by: Arvin Cunningham M.D. on 12/25/2018 at 9:38 Approved by: Arvin Cunningham M.D. on 12/25/2018 at 9:39
== END ==
PROVIDERS: PCP Family Medicine; Visit Provider Internal Medicine Hematology & Oncology
DX: C57.00 Malignant neoplasm of unspecified fallopian tube (principal); R18.8 Other ascites
CPT/HCPCS: 49083

== ENCOUNTER 2019-01-03 09:42 | Emergency (ER) | payer MEDICARE, OTHER, SELFPAY ==
[2019-01-03 09:49] VITALS: BP 126/74; PULSE 100; RESP 16; TEMP 36.8; O2SAT 98; BMI 19.6
--- NOTE | 2019-01-03 09:49 | DI.US.S_ITS ---
PROCEDURE: US PARACENTESIS INDICATIONS: ASCITIES TECHNIQUE: The indications, alternatives, benefits, risks, and complications of the procedure were explained to the patient. Written informed consent was obtained and placed in the chart. The abdomen and pelvis were examined sonographically, and an appropriate site was chosen for paracentesis. The skin was prepared and draped in the usual sterile fashion, and 1% lidocaine was infiltrated from the skin down through the peritoneal surface. A 19-gauge catheter-covered needle was then introduced into the peritoneal space, the catheter was advanced and the needle was withdrawn, and thereafter peritoneal fluid was withdrawn. The catheter was then removed and a dressing was applied. The fluid was discarded if the clinician did not order diagnostic testing of the fluid. COMPARISON: [facility], PARACENTESIS, 11/30/2018, 13:00. FINDINGS: Access site: Left lower quadrant Needle: One-Step centesis catheter with introducer needle. Fluid volume and description: 5 L, clear Fluid sent for diagnostic testing: Not requested. Medications: 1% lidocaine for local anaesthesia. Complications: None. IMPRESSION: Successful ultrasound-guided paracentesis. Dictated by: Tanya Karimi M.D. on 01/03/2019 at 11:13 Approved by: Tanya Karimi M.D. on 01/03/2019 at 11:13
[2019-01-03 10:20] LABS: Add Manual Diff / Slide Review NO; Basophils Absolute Auto 100 /uL (0-100); Basophils Percent Auto 1.3 % (0-2); Eosinophils Absolute Auto 100 /uL (0-450); Eosinophils Percent Auto 1.6 % (2-4); Hematocrit 35.1 % (36-46); Hemoglobin 11.6 g/dL (12.0-16.0); Lymphocytes Absolute Auto 700 /uL (1100-4500); Lymphocytes Percent Auto 15.9 % (25-40); Mean Corpuscular Hemoglobin 25.8 PG (26-34); Monocytes Absolute Auto 500 /uL (0-900); Monocytes Percent Auto 11.3 % (3-14); Neutrophils Absolute Auto 3200 /uL (1500-7000); Neutrophils Percent Auto 69.9 % (50-75); Platelet Count 581 X10^3/uL (150-400); Red Cell Distribution Width 15.7 % (11.6-14.8); White Blood Cell Count 4.5 X10^3/uL (4.5-11.0)
[2019-01-03 10:22] LABS: Prothrombin Time 11.4 SECONDS (10.1-12.7)
[2019-01-03 10:26] LABS: BUN Creatinine Ratio 16.4 (6-22); Blood Urea Nitrogen 18 mg/dL (7-17); Calcium 8.6 mg/dL (8.4-10.2); Carbon Dioxide 31 mmol/L (22-32); Chloride 98 mmol/L (98-107); Estimated Glomerular Filt Rate 49.1 mL/min (>60); Glucose 102 mg/dL (80-110); HEMOLYSIS < 15 (0-50); Sodium 134 mmol/L (137-145)
--- NOTE | 2019-01-03 10:42 | ED.ABDPAIN ---
HPI - Abdominal Pain General Chief Complaint: Abdominal Pain Stated Complaint: Abd issue Time Seen by Provider: 01/03/19 09:49 Source: patient and family Mode of arrival: ambulatory Limitations: no limitations History of Present Illness HPI narrative: 68-year-old female nonsmoker with a history of ascites and recent paracentesis presents to the emergency department with increasing abdominal swelling and discomfort, hoping to get another paracentesis. 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 She denies any fever chills nor nausea or vomiting. She takes no blood thinners. MD complaint: other Onset (ago): day(s) Pain Consistency: constant Location: diffuse Severity: mild Radiation: none Relieving factors: nothing Exacerbating factors: nothing Associated symptoms: denies other symptoms Related Data Home Medications Medication Instructions Recorded Confirmed [MARIJUANA CAPSULES] 1 cap PO BEDTIME PRN #0 08/06/17 11/16/18 [id number] 1 tab PO Q4-6H PRN 11/09/18 11/16/18 [Excedrin Migraine] Previous Rx's Medication Instructions Recorded oxycodone-acetaminophen 1 tab PO Q4-6H PRN #60 tab 11/16/18 Allergies Allergy/AdvReac Type Severity Reaction Status Date / Time erythromycin base AdvReac Unknown UPSET Verified 01/03/19 09:49 [ERYTHROMYCIN BASE] STOMACH Review of Systems Constitutional Denies chills, Denies fever(s), Denies lethargy and Denies weakness Eyes Denies change in vision, Denies eye discharge, Denies irritation and Denies loss of vision ENT Ears, Nose, Mouth, and Throat: Denies change in voice, Denies neck pain and Denies sore throat Cardiovascular Denies chest pain, Denies irregular heart rhythm, Denies lightheadedness, Denies palpitations, Denies dyspnea, Denies dyspnea on exertion and Denies orthopnea Respiratory Denies cough, Denies dyspnea, Denies dyspnea on exertion and Denies wheezing Gastrointestinal Gastrointestinal: Denies abdominal pain, Denies change in bowel habits, Denies diarrhea, Denies nausea and Denies vomiting Comments: Ascites Genitourinary Denies hematuria, Denies flank pain, Denies urinary incontinence and Denies urinary urgency Musculoskeletal Denies neck pain Integumentary/Breasts Denies pruritus, Denies erythema, Denies rash and Denies wounds Neurologic Denies confusion, Denies loss of vision and Denies weakness Psychiatric Denies anxiety, Denies confusion, Denies depression, Denies homicidal ideation and Denies suicidal ideation Endocrine Denies palpitations Hematologic/Lymphatic Denies easy bruising Allergic/Immunologic Denies wheezing PFSH Medical History Metastatic carcinoma (Acute) Anemia (Chronic) Hypertension (Chronic) Hypothyroidism (Chronic) Poor sleep (Chronic) Weight loss (Chronic) History of cellulitis (Resolved ~2012) Surgical History History of bilateral salpingo-oophorectomy (BSO) Status post appendectomy Status post breast lumpectomy Status post hysterectomy with oophorectomy (10/18/15) Status post laparoscopy (10/09/15) Status post tonsillectomy and adenoidectomy Status post tubal ligation Social History household members: spouse Smoking Status: Never smoker Social History household members: spouse Smoking Status: Never smoker Exam Narrative Exam Narrative: GEN: AOx3 and in mild distress EYES: Pupils are equal, round, and reactive to light and accommodation. Extraoccular muscles are intact bilaterally. There is no subconjunctival hemorrhage or exudate. CHEST: Lungs are clear to auscultation bilaterally and free of wheezes, rales, or rhonchi. Heart rate is regular rhythm, there are no murmurs, clicks, rubs, or gallops. There is no chest wall tenderness. ABD: Tense ascites, no pain. There is no guarding or rebound. Bowel sounds are normal in all 4 quadrants. There is no mass or organomegaly. EXT: Full painless ROM of all extremities with no loss of sensation or strength. SKIN: Warm, pink, and dry. No erythema or rash Initial Vital Signs Initial Vital Signs: Vital Signs Temperature 98.3 F 01/03/19 09:49 Pulse Rate 100 H 01/03/19 09:49 Respiratory Rate 16 01/03/19 09:49 Blood Pressure 126/74 01/03/19 09:49 Pulse Oximetry 98 01/03/19 09:49 Course Orders Ordered: ED Orders 01/03/19 09:49 US paracentesis Stat 01/03/19 10:00 Basic Metabolic Panel Stat Complete Blood Count AUTO DIFF Stat Prothrombin Time INR Stat Consultations Consultation #1: call to radiology for US guided paracentesis Vital Signs - 8 hr 01/03/19 11:25 01/03/19 12:04 Pulse Rate 75 87 Respiratory Rate 18 18 Blood Pressure 108/75 Blood Pressure [Left Arm] 115/57 L Pulse Oximetry 98 100 MDM - Abdominal Pain Lab Data Result diagrams: 01/03/19 10:00 01/03/19 10:00 Lab Results 01/03/19 01/03/19 01/03/19 Range/Units 10:00 10:00 10:00 WBC 4.5 (4.5-11.0) X10^3/uL RBC 4.50 (4.0-5.2) X10^6/uL Hgb 11.6 L (12.0-16.0) g/dL Hct 35.1 L (36-46) % MCV 78.0 L (80-100) fL MCH 25.8 L (26-34) PG MCHC 33.0 (30-36) % RDW 15.7 H (11.6-14.8) % Plt Count 581 H (150-400) X10^3/uL Neut % (Auto) 69.9 (50-75) % Lymph % (Auto) 15.9 L (25-40) % [place] % (Auto) 11.3 (3-14) % Eos % (Auto) 1.6 L (2-4) % Baso % (Auto) 1.3 (0-2) % Neut # (Auto) 3200 (4082-4974) /uL Lymph # (Auto) 700 L (9830-5423) /uL [place] # (Auto) 500 (0-900) /uL Eos # (Auto) 100 (0-450) /uL Baso # (Auto) 100 (0-100) /uL PT 11.4 (10.1-12.7) SECONDS INR 1.0 (0.9-1.3) Sodium 134 L (137-145) mmol/L Potassium 4.0 (3.4-5.1) mmol/L Chloride 98 (98-107) mmol/L Carbon Dioxide 31 (22-32) mmol/L BUN 18 H (7-17) mg/dL Creatinine 1.10 H (0.52-1.04) mg/dL Estimated GFR 49.1 L (>60) mL/min BUN/Creatinine Ratio 16.4 (6-22) Glucose 102 (80-110) mg/dL Calcium 8.6 (8.4-10.2) mg/dL Imaging Data US - abdomen: Radiologist's impression: [address] [address] Ultrasound Report Signed Patient: Anastasiya Aguilera LMR#: [id number] : 9Acct:[id number] Age/Sex: 68 / FDate of Service: 01/03/19 Loc: ED Accession Number: [id number] Procedure: US paracentesis Ordering Provider: Javier Vega D.O. PROCEDURE: US PARACENTESIS INDICATIONS: ASCITIES TECHNIQUE: The indications, alternatives, benefits, risks, and complications of the procedure were explained to the patient. Written informed consent was obtained and placed in the chart. The abdomen and pelvis were examined sonographically, and an appropriate site was chosen for paracentesis. The skin was prepared and draped in the usual sterile fashion, and 1% lidocaine was infiltrated from the skin down through the peritoneal surface. A 19-gauge catheter-covered needle was then introduced into the peritoneal space, the catheter was advanced and the needle was withdrawn, and thereafter peritoneal fluid was withdrawn. The catheter was then removed and a dressing was applied. The fluid was discarded if the clinician did not order diagnostic testing of the fluid. COMPARISON: [facility], , US PARACENTESIS, 11/30/2018, 13:00. FINDINGS: Access site: Left lower quadrant Needle: One-Step centesis catheter with introducer needle. Fluid volume and description: 5 L, clear Fluid sent for diagnostic testing: Not requested. Medications: 1% lidocaine for local anaesthesia. Complications: None. IMPRESSION: Successful ultrasound-guided paracentesis. Dictated by: Tanya Karimi M.D. on 01/03/2019 at 11:13 Approved by: Tanya Karimi M.D. on 01/03/2019 at 11:13 Discharge Plan Departure Patient Disposition: Home Clinical Impression: BRCA positive, Status post abdominal paracentesis Ascites Qualifiers: Ascites type: other type Qualified Code(s): R18.8 - Other ascites Discharge Date/Time: 01/03/19 12:04 Interventions: ED Discharge Assessment Last Done: 01/03/19 12:04 Instructions: DI for Ascites Activity Restrictions/Additional Instructions: *You have been diagnosed with [abdominal ascites, therapeutic paracentesis] *What to do: * continue to take medications as directed *Follow up with your primary care provider in 2-3 days, call for an appointment. Let them know you were seen in the Emergency Department and that we ask that you be seen in follow up *Return to ER if you should have any new, worsening or concerning symptoms Prescriptions: No Action [MARIJUANA CAPSULES] 1 cap PO BEDTIME PRN (Reason: sleep or pain) Qty: 0 RF: 0 Excedrin Migraine 250-250-65 mg Tablet 1 tab PO Q4-6H PRN (Reason: Pain (Scale Score 1-3)) RF: 0 oxycodone-acetaminophen 5-325 mg Tablet 1 tab PO Q4-6H PRN (Reason: fallopian ca, with ascites ) Qty: 60 RF: 0 Referrals: Juan Storey MD [Primary Care Provider] -
--- NOTE | 2019-01-03 11:23 | PC.NURSE ---
Dr. Tanner and Renu came to [facility] patient for a paracentesis. They asked me to stay there and change out the bottles. They wanted a total of 5 bottles or 5000 cc removed from pt's abdomen. upon completion . pressure applied on left side of abdomen for a few minutes and a bandaid applied. pt tolerated procedure well. reports she feels much better. vss.
[2019-01-03 11:25] VITALS: BP 115/57; PULSE 75; RESP 18; O2SAT 98
[2019-01-03 12:04] VITALS: BP 108/75; PULSE 87; RESP 18; O2SAT 100
--- NOTE | 2019-01-03 18:51 | ED_ITS ---
HPI - Abdominal Pain General Chief Complaint: Abdominal Pain Stated Complaint: Abd issue Time Seen by Provider: 01/03/19 09:49 Source: patient and family Mode of arrival: ambulatory Limitations: no limitations History of Present Illness HPI narrative: 68-year-old female nonsmoker with a history of ascites and recent paracentesis presents to the emergency department with increasing abdominal swelling and discomfort, hoping to get another paracentesis. 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 She denies any fever chills nor nausea or vomiting. She takes no blood thinners. MD complaint: other Onset (ago): day(s) Pain Consistency: constant Location: diffuse Severity: mild Radiation: none Relieving factors: nothing Exacerbating factors: nothing Associated symptoms: denies other symptoms Related Data Home Medications Medication Instructions Recorded Confirmed [MARIJUANA CAPSULES] 1 cap PO BEDTIME PRN #0 08/06/17 11/16/18 [id number] 1 tab PO Q4-6H PRN 11/09/18 11/16/18 [Excedrin Migraine] Previous Rx's Medication Instructions Recorded oxycodone-acetaminophen 1 tab PO Q4-6H PRN #60 tab 11/16/18 Allergies Allergy/AdvReac Type Severity Reaction Status Date / Time erythromycin base AdvReac Unknown UPSET Verified 01/03/19 09:49 [ERYTHROMYCIN BASE] STOMACH Review of Systems Constitutional Denies chills, Denies fever(s), Denies lethargy and Denies weakness Eyes Denies change in vision, Denies eye discharge, Denies irritation and Denies loss of vision ENT Ears, Nose, Mouth, and Throat: Denies change in voice, Denies neck pain and Denies sore throat Cardiovascular Denies chest pain, Denies irregular heart rhythm, Denies lightheadedness, Denies palpitations, Denies dyspnea, Denies dyspnea on exertion and Denies orthopnea Respiratory Denies cough, Denies dyspnea, Denies dyspnea on exertion and Denies wheezing Gastrointestinal Gastrointestinal: Denies abdominal pain, Denies change in bowel habits, Denies diarrhea, Denies nausea and Denies vomiting Comments: Ascites Genitourinary Denies hematuria, Denies flank pain, Denies urinary incontinence and Denies urinary urgency Musculoskeletal Denies neck pain Integumentary/Breasts Denies pruritus, Denies erythema, Denies rash and Denies wounds Neurologic Denies confusion, Denies loss of vision and Denies weakness Psychiatric Denies anxiety, Denies confusion, Denies depression, Denies homicidal ideation and Denies suicidal ideation Endocrine Denies palpitations Hematologic/Lymphatic Denies easy bruising Allergic/Immunologic Denies wheezing PFSH Medical History Metastatic carcinoma (Acute) Anemia (Chronic) Hypertension (Chronic) Hypothyroidism (Chronic) Poor sleep (Chronic) Weight loss (Chronic) History of cellulitis (Resolved ~2012) Surgical History History of bilateral salpingo-oophorectomy (BSO) Status post appendectomy Status post breast lumpectomy Status post hysterectomy with oophorectomy (10/18/15) Status post laparoscopy (10/09/15) Status post tonsillectomy and adenoidectomy Status post tubal ligation Social History household members: spouse Smoking Status: Never smoker Social History household members: spouse Smoking Status: Never smoker Exam Narrative Exam Narrative: GEN: AOx3 and in mild distress EYES: Pupils are equal, round, and reactive to light and accommodation. Extraoccular muscles are intact bilaterally. There is no subconjunctival hemorrhage or exudate. CHEST: Lungs are clear to auscultation bilaterally and free of wheezes, rales, or rhonchi. Heart rate is regular rhythm, there are no murmurs, clicks, rubs, or gallops. There is no chest wall tenderness. ABD: Tense ascites, no pain. There is no guarding or rebound. Bowel sounds are normal in all 4 quadrants. There is no mass or organomegaly. EXT: Full painless ROM of all extremities with no loss of sensation or strength. SKIN: Warm, pink, and dry. No erythema or rash Initial Vital Signs Initial Vital Signs: Vital Signs Temperature 98.3 F 01/03/19 09:49 Pulse Rate 100 H 01/03/19 09:49 Respiratory Rate 16 01/03/19 09:49 Blood Pressure 126/74 01/03/19 09:49 Pulse Oximetry 98 01/03/19 09:49 Course Orders Ordered: ED Orders 01/03/19 09:49 US paracentesis Stat 01/03/19 10:00 Basic Metabolic Panel Stat Complete Blood Count AUTO DIFF Stat Prothrombin Time INR Stat Consultations Consultation #1: call to radiology for US guided paracentesis Vital Signs - 8 hr 01/03/19 11:25 01/03/19 12:04 Pulse Rate 75 87 Respiratory Rate 18 18 Blood Pressure 108/75 Blood Pressure [Left Arm] 115/57 L Pulse Oximetry 98 100 MDM - Abdominal Pain Lab Data Result diagrams: 01/03/19 10:00 01/03/19 10:00 Lab Results 01/03/19 01/03/19 01/03/19 Range/Units 10:00 10:00 10:00 WBC 4.5 (4.5-11.0) X10^3/uL RBC 4.50 (4.0-5.2) X10^6/uL Hgb 11.6 L (12.0-16.0) g/dL Hct 35.1 L (36-46) % MCV 78.0 L (80-100) fL MCH 25.8 L (26-34) PG MCHC 33.0 (30-36) % RDW 15.7 H (11.6-14.8) % Plt Count 581 H (150-400) X10^3/uL Neut % (Auto) 69.9 (50-75) % Lymph % (Auto) 15.9 L (25-40) % [place] % (Auto) 11.3 (3-14) % Eos % (Auto) 1.6 L (2-4) % Baso % (Auto) 1.3 (0-2) % Neut # (Auto) 3200 (2018-8022) /uL Lymph # (Auto) 700 L (9462-5418) /uL [place] # (Auto) 500 (0-900) /uL Eos # (Auto) 100 (0-450) /uL Baso # (Auto) 100 (0-100) /uL PT 11.4 (10.1-12.7) SECONDS INR 1.0 (0.9-1.3) Sodium 134 L (137-145) mmol/L Potassium 4.0 (3.4-5.1) mmol/L Chloride 98 (98-107) mmol/L Carbon Dioxide 31 (22-32) mmol/L BUN 18 H (7-17) mg/dL Creatinine 1.10 H (0.52-1.04) mg/dL Estimated GFR 49.1 L (>60) mL/min BUN/Creatinine Ratio 16.4 (6-22) Glucose 102 (80-110) mg/dL Calcium 8.6 (8.4-10.2) mg/dL Imaging Data US - abdomen: Radiologist's impression: [address] [address] Ultrasound Report Signed Patient: Anastasiya Aguilera LMR#: [id number] : 9Acct:[id number] Age/Sex: 68 / FDate of Service: 01/03/19 Loc: ED Accession Number: [id number] Procedure: US paracentesis Ordering Provider: Javier Vega D.O. PROCEDURE: US PARACENTESIS INDICATIONS: ASCITIES TECHNIQUE: The indications, alternatives, benefits, risks, and complications of the procedure were explained to the patient. Written informed consent was obtained and placed in the chart. The abdomen and pelvis were examined sonographically, and an appropriate site was chosen for paracentesis. The skin was prepared and draped in the usual sterile fas hion, and 1% lidocaine was infiltrated from the skin down through the peritoneal surface. A 19-gauge catheter-covered needle was then introduced into the peritoneal space, the catheter was advanced and the needle was withdrawn, and thereafter peritoneal fluid was withdrawn. The catheter was then removed and a dressing was applied. The fluid was discarded if the clinician did not order diagnostic testing of the fluid. COMPARISON: [facility], , US PARACENTESIS, 11/30/2018, 13:00. FINDINGS: Access site: Left lower quadrant Needle: One-Step centesis catheter with introducer needle. Fluid volume and description: 5 L, clear Fluid sent for diagnostic testing: Not requested. Medications: 1% lidocaine for local anaesthesia. Complications: None. IMPRESSION: Successful ultrasound-guided paracentesis. Dictated by: Tanya Karimi M.D. on 01/03/2019 at 11:13 Approved by: Tanya Karimi M.D. on 01/03/2019 at 11:13 Discharge Plan Departure Patient Disposition: Home Clinical Impression: BRCA positive, Status post abdominal paracentesis Ascites Qualifiers: Ascites type: other type Qualified Code(s): R18.8 - Other ascites Discharge Date/Time: 01/03/19 12:04 Interventions: ED Discharge Assessment Last Done: 01/03/19 12:04 Instructions: DI for Ascites Activity Restrictions/Additional Instructions: *You have been diagnosed with [abdominal ascites, therapeutic paracentesis] *What to do: * continue to take medications as directed *Follow up with your primary care provider in 2-3 days, call for an appointment. Let them know you were seen in the Emergency Department and that we ask that you be seen in follow up *Return to ER if you should have any new, worsening or concerning symptoms Prescriptions: No Action [MARIJUANA CAPSULES] 1 cap PO BEDTIME PRN (Reason: sleep or pain) Qty: 0 RF: 0 Excedrin Migraine 250-250-65 mg Tablet 1 tab PO Q4-6H PRN (Reason: Pain (Scale Score 1-3)) RF: 0 oxycodone-acetaminophen 5-325 mg Tablet 1 tab PO Q4-6H PRN (Reason: fallopian ca, with ascites ) Qty: 60 RF: 0 Referrals: Juan Storey MD [Primary Care Provider] -
== END 2019-01-03 12:04 | disposition home or self-care (01) ==
PROVIDERS: Emergency Provider Emergency Medicine; PCP Family Medicine
DX: R18.8 Other ascites (principal); Z98.890 Other specified postprocedural states
CPT/HCPCS: 36591; 49083; 80048; 85025; 85610; 99282; 99284

== ENCOUNTER → 2019-01-11 12:28 | Outpatient (CLI) | payer MEDICARE, OTHER, SELFPAY ==
--- NOTE | 2019-01-11 | DI.US.S_ITS ---
PROCEDURE: US PARACENTESIS INDICATIONS: MALIGNANT ASCITES TECHNIQUE: The indications, alternatives, benefits, risks, and complications of the procedure were explained to the patient. Written informed consent was obtained and placed in the chart. The abdomen and pelvis were examined sonographically, and an appropriate site was chosen for paracentesis. The skin was prepared and draped in the usual sterile fashion, and 1% lidocaine was infiltrated from the skin down through the peritoneal surface. A 19-gauge catheter-covered needle was then introduced into the peritoneal space, the catheter was advanced and the needle was withdrawn, and thereafter peritoneal fluid was withdrawn. The catheter was then removed and a dressing was applied. The fluid was discarded if the clinician did not order diagnostic testing of the fluid. COMPARISON: [facility], PARACENTESIS, 01/03/2019, 10:33. FINDINGS: Access site: Right lower quadrant Needle: One-Step centesis catheter with introducer needle. Fluid volume and description: 4300 cc of serous fluid Fluid sent for diagnostic testing: Not requested Medications: 1% lidocaine for local anaesthesia. Complications: None. IMPRESSION: Successful ultrasound-guided paracentesis. Dictated by: Wilian Galindo M.D. on 01/11/2019 at 16:59 Approved by: Wilian Galindo M.D. on 01/11/2019 at 16:59
== END ==
PROVIDERS: PCP Family Medicine; Visit Provider Nurse Practitioner
DX: C56.9 Malignant neoplasm of unspecified ovary (principal); R18.0 Malignant ascites
CPT/HCPCS: 49083

== ENCOUNTER → 2019-01-19 09:09 | Outpatient (CLI) | payer MEDICARE, OTHER, SELFPAY ==
--- NOTE | 2019-01-19 | DI.US.S_ITS ---
PROCEDURE: US ABDOMEN LIMITED INDICATIONS: MALIGNANT ASCITES TECHNIQUE: Real-time focused scanning was performed of the abdomen, with image documentation. COMPARISON: [facility], US PARACENTESIS, 01/11/2019, 12:42. [facility], , US ABDOMEN LIMITED, 12/19/2018, 15:39. FINDINGS: There is a moderate amount of ascites. IMPRESSION: A moderate amount ascites. After discussing with the patient, paracentesis was not performed at this time. Dictated by: Tanya Karimi M.D. on 01/19/2019 at 17:12 Approved by: Tanya Karimi M.D. on 01/19/2019 at 17:14
== END ==
PROVIDERS: PCP Family Medicine; Visit Provider Nurse Practitioner
DX: R18.0 Malignant ascites (principal)
CPT/HCPCS: 76705

== ENCOUNTER → 2019-01-22 09:49 | Outpatient (CLI) | payer MEDICARE, OTHER, SELFPAY ==
--- NOTE | 2019-01-22 | DI.US.S_ITS ---
PROCEDURE: US PARACENTESIS INDICATIONS: MALIGNANT ASCITES TECHNIQUE: The indications, alternatives, benefits, risks, and complications of the procedure were explained to the patient. Written informed consent was obtained and placed in the chart. The abdomen and pelvis were examined sonographically, and an appropriate site was chosen for paracentesis. The skin was prepared and draped in the usual sterile fashion, and 1% lidocaine was infiltrated from the skin down through the peritoneal surface. A 19-gauge catheter-covered needle was then introduced into the peritoneal space, the catheter was advanced and the needle was withdrawn, and thereafter peritoneal fluid was withdrawn. The catheter was then removed and a dressing was applied. The fluid was discarded if the clinician did not order diagnostic testing of the fluid. COMPARISON: [facility], PARACENTESIS, 01/11/2019, 12:42. [facility], PARACENTESIS, 01/03/2019, 10:33. FINDINGS: Access site: Right lower lateral pelvic body wall in an area found providing safe access for paracentesis Needle: One-Step centesis catheter with introducer needle. Fluid volume and description: 4850 cc, serous fluid Fluid sent for diagnostic testing: Not requested Medications: 1% lidocaine for local anaesthesia. Complications: None. IMPRESSION: Successful ultrasound-guided paracentesis. Dictated by: Arvin Cunningham M.D. on 01/22/2019 at 12:53 Approved by: Arvin Cunningham M.D. on 01/22/2019 at 12:54
== END ==
PROVIDERS: PCP Family Medicine; Visit Provider Family Medicine
DX: R18.0 Malignant ascites (principal)
CPT/HCPCS: 49083

== ENCOUNTER → 2019-02-08 13:59 | Outpatient (CLI) | payer MEDICARE, OTHER, SELFPAY | PROVIDERS: PCP Family Medicine; Visit Provider Nurse Practitioner | DX: R18.0 Malignant ascites (principal); Z53.9 Procedure and treatment not carried out, unspecified reason ==

== ENCOUNTER → 2019-06-04 13:12 | Outpatient (CLI) | payer MEDICARE, OTHER, SELFPAY ==
--- NOTE | 2019-06-04 14:07 | DI.CT.S_ITS ---
PROCEDURE: CT CHEST ABD PEL W CON INDICATIONS: Malignant neoplasm of unspecified ovary TECHNIQUE: After the administration of oral and intravenous contrast, 5 mm thick sections acquired from the lung apices to the symphysis. 5 mm coronal and sagittal reformats were performed, with additional 7 mm coronal MIP reformats through the lungs. For radiation dose reduction, the following was used: automated exposure control, adjustment of mA and/or kV according to patient size. COMPARISON: [facility], [place], [place] PET CT FUSION SKULL 2 THIGH, 11/18/2018, 15:41. [facility], [place], CT CHEST ABD PEL W CON, 03/27/2018, 11:08. FINDINGS: Image quality: Excellent. CHEST: Lungs and pleura: A 3 mm nodule is seen in the right middle lobe just anterior to the major fissure (series 3 image 174), unchanged compared to the PET/CT on 11/18/2018. A 3 mm pulmonary nodule in the right middle lobe (series 3 image 149) was not definitively seen on the last PET/CT. There is left basilar atelectasis. No acute airspace opacities. No pleural effusions or pneumothorax. Central and peripheral airways appear patent and normal in caliber. Mediastinum: Heart size is normal. No pericardial effusion. No mediastinal or hilar adenopathy by size criteria. Thoracic aorta and central pulmonary arteries are normal in size. Esophagus is normal in caliber. No hiatal hernia. Chest wall: No axillary or supraclavicular adenopathy by size criteria. Thyroid gland is unremarkable. ABDOMEN: Solid organs: Liver is normal in size and enhancement. Gallbladder is normal. Biliary system is non dilated. Pancreas enhances normally. Spleen is normal in size and enhancement. No adrenal nodules. Kidneys demonstrate normal size and enhancement, without hydronephrosis. Peritoneum and bowel: There is a moderate to large moderate ascites, significantly increased compared to the last FDG PET dated 11/18/2018. 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 The largest implant is seen in the left anterior abdomen measuring 1.5 x 3.6 cm, this was not visualized on the diagnostic CT 03/27/2018 but present on the PET/CT 11/18/2018. It appears increased in size although on the PET/CT the mass was suboptimally demarcated due to lack of intravenous contrast and adjacent bowel. Masslike densities are seen along the posterior border of the gallbladder, new since 03/27/2018. A 1.4 x 1.9 cm peritoneal nodule is seen adjacent to the descending colon below the liver, previously measuring 0.8 x 1.2 cm. Ill-defined soft tissue mass is identified along the left deep peritoneal reflection measuring 2.8 x 5.3 cm, not definitely seen on the last CT exam. A cluster of cystic masses or necrotic lymph nodes are noted along the left pelvic sidewall. The dominant lesion measures 2.5 x 3.4 cm and demonstrates irregular thick wall. Previously, there is a larger cystic component measuring 3.5 x 3.9 cm in diameter, which had a thin walled appearance. Bowel loops demonstrate normal wall thickness and caliber. No free fluid or air. Nodes and vessels: No retroperitoneal or mesenteric adenopathy by size criteria. Aorta and inferior vena cava are normal in size. Miscellaneous: No ventral hernias. PELVIS: Genitourinary: Bladder wall thickness is normal. Miscellaneous: No inguinal hernias or adenopathy. Bones: No suspicious bony lesions. No vertebral body compression fractures. IMPRESSION: 1. Overall worsening of disease. There is significant increase in the amount of ascites since the last PET/CT on 11/18/2018. Peritoneal nodules/masses are new or increased in size since the diagnostic CT on 03/27/2018 but difficult to compare with the PET/CT (not well seen on the nonenhanced non-diagnostic CT accompanying FDG PET). Please correlate with tumor markers. Dictated by: Tanya Karimi M.D. on 06/04/2019 at 17:17 Approved by: Tanya Karimi M.D. on 06/04/2019 at 18:02
== END ==
PROVIDERS: PCP Family Medicine; Visit Provider Family Medicine
DX: C56.9 Malignant neoplasm of unspecified ovary (principal); R18.8 Other ascites; K66.9 Disorder of peritoneum, unspecified
CPT/HCPCS: 71260; 74177; Q9967

== ENCOUNTER → 2019-07-13 08:16 | Outpatient (CLI) | payer MEDICARE, OTHER, SELFPAY ==
--- NOTE | 2019-07-13 | DI.US.S_ITS ---
PROCEDURE: US ABDOMEN LIMITED INDICATIONS: MALIGNANT ASCITES TECHNIQUE: Real-time focused scanning was performed of the abdomen, with image documentation. COMPARISON: [facility], US PARACENTESIS, 01/22/2019, 11:06. [facility], US PARACENTESIS, 12/25/2018, 7:52. [facility], US PARACENTESIS, 01/03/2019, 10:33. [facility], US PARACENTESIS, 01/11/2019, 12:42. [facility], US ABDOMEN LIMITED, 12/23/2018, 8:00. FINDINGS: A small to moderate amount of ascites is present. The largest pockets is just below the liver. IMPRESSION: A small to moderate amount of ascites is present. After discussing with the patient, paracentesis was postponed. Dictated by: Tanya Karimi M.D. on 07/13/2019 at 11:10 Approved by: Tanya Karimi M.D. on 07/13/2019 at 11:12
[2019-07-13 09:57] LABS: Add Manual Diff / Slide Review NO; Basophils Absolute Auto 100 /uL (0-100); Basophils Percent Auto 1.9 % (0-2); Eosinophils Absolute Auto 100 /uL (0-450); Eosinophils Percent Auto 2.6 % (2-4); Hematocrit 32.9 % (36-46); Hemoglobin 11.2 g/dL (12.0-16.0); Lymphocytes Absolute Auto 800 /uL (1100-4500); Lymphocytes Percent Auto 21.7 % (25-40); Mean Corpuscular Hemoglobin 31.6 PG (26-34); Mean Corpuscular Volume 92.8 fL (80-100); Monocytes Absolute Auto 500 /uL (0-900); Monocytes Percent Auto 13.9 % (3-14); Neutrophils Absolute Auto 2100 /uL (1500-7000); Neutrophils Percent Auto 59.9 % (50-75); Platelet Count 278 X10^3/uL (150-400); Red Blood Cell Count 3.54 X10^6/uL (4.0-5.2); Red Cell Distribution Width 18.1 % (11.6-14.8); White Blood Cell Count 3.6 X10^3/uL (4.5-11.0)
[2019-07-13 10:12] LABS: Prothrombin Time 11.5 SECONDS (10.1-12.7)
== END ==
PROVIDERS: PCP Family Medicine; Visit Provider Obstetrics & Gynecology Gynecologic Oncology
DX: R18.0 Malignant ascites (principal)
CPT/HCPCS: 36415; 76705; 85025; 85610

== ENCOUNTER 2020-12-08 14:37 | Emergency (ER) | payer MEDICARE, OTHER, SELFPAY ==
[2020-12-08] VITALS (12 sets, daily range): BP systolic 156–195; BP diastolic 88–101; PULSE 87–102; RESP 16–22; TEMP 36.4–36.7; O2SAT 85–97
--- NOTE | 2020-12-08 | DI.RAD.S_ITS ---
PROCEDURE: XR CHEST 1V INDICATIONS: POST THORA TECHNIQUE: One view of the chest was acquired. COMPARISON: [facility], CT, CT CHEST WITH CONTRAST, 08/08/2020, 11:42. [facility], [place], XR CHEST 1V, 12/08/2020, 15:13. FINDINGS: Surgical changes and devices: A left chest wall port is well positioned. Lungs and pleura: There is no pneumothorax after thoracentesis. An aerated portion of lung is now seen in the right mid lung. The left lung is clear. Mediastinum: Mediastinal contours appear normal. Heart size is normal. Bones and chest wall: No suspicious bony lesions. Overlying soft tissues appear unremarkable. IMPRESSION: Status post thoracentesis of the right lung with no evidence of pneumothorax. There is a persistent large right pleural effusion. Dictated by: Jose Lagunas M.D. on 12/08/2020 at 17:03 Approved by: Jose Lagunas M.D. on 12/08/2020 at 17:05
--- NOTE | 2020-12-08 14:51 | DI.RAD.S_ITS ---
PROCEDURE: XR CHEST 1V INDICATIONS: chest pain TECHNIQUE: One view of the chest was acquired. COMPARISON: [facility], CT, CT CHEST ABDOMEN PELVIS WITH CONTRAST, 06/29/2020, 14:41. [facility], CT, CT CHEST WITH CONTRAST, 08/08/2020, 11:42. [facility], CR, XR CHEST 1V, 04/15/2018, 14:59. [facility], CR, XR CHEST 1V, 04/15/2018, 13:37. FINDINGS: Surgical changes and devices: Port-A-Cath from left-sided approach extends into the expected region of the superior vena cava. Lungs and pleura: Lungs are asymmetric, aerated on the left and occluded or compressed on the right. Mucous plugging within a bronchial airway could produce this appearance.. Mediastinum: Mediastinal contours appear normal. Heart size is normal. Bones and chest wall: No suspicious bony lesions. Overlying soft tissues appear unremarkable. IMPRESSION: Asymmetric appearance of the lung parenchyma, without aeration on the right and with aeration on the left. Mucous plugging within a bronchial airway could produce this appearance, with dense atelectasis and retention of pulmonary secretions. It is unclear at this time whether a large pleural effusion is present on the right. Prior CT scanning has shown lung masses and mediastinal/right hilar mass. Dictated by: Arvin Cunningham M.D. on 12/08/2020 at 15:34 Approved by: Arvin Cunningham M.D. on 12/08/2020 at 15:37
[2020-12-08 15:16] LABS: Add Manual Diff / Slide Review NO; Basophils Absolute Auto 100 /uL (0-100); Basophils Percent Auto 0.9 % (0-2); Eosinophils Absolute Auto 100 /uL (0-450); Eosinophils Percent Auto 1.7 % (2-4); Hematocrit 31.9 % (36-46); Hemoglobin 10.3 g/dL (12.0-16.0); Lymphocytes Absolute Auto 900 /uL (1100-4500); Mean Corpuscular HGB Conc 32.3 % (30-36); Mean Corpuscular Hemoglobin 28.6 PG (26-34); Mean Corpuscular Volume 88.5 fL (80-100); Monocytes Absolute Auto 700 /uL (0-900); Monocytes Percent Auto 10.8 % (3-14); Neutrophils Absolute Auto 5000 /uL (1500-7000); Neutrophils Percent Auto 73.6 % (50-75); Platelet Count 573 X10^3/uL (150-400); Red Cell Distribution Width 19.9 % (11.6-14.8); White Blood Cell Count 6.9 X10^3/uL (4.5-11.0)
[2020-12-08 15:21] LABS: Prothrombin Time 11.2 SECONDS (10.1-12.7)
--- NOTE | 2020-12-08 15:21 | DI.US.S_ITS ---
PROCEDURE: US THORACENTESIS INDICATIONS: right lung TECHNIQUE: The indications, alternatives, benefits, risks, and complications of the procedure were explained to the patient. Written informed consent was obtained and placed in the chart. The chest was examined sonographically, and an appropriate site was chosen for thoracentesis. The skin was prepared and draped in the usual sterile fashion, and 1% lidocaine was infiltrated from the skin down through the pleural surface. A 19-gauge catheter-covered needle was then introduced into the pleural space, the catheter was advanced and the needle was withdrawn, and thereafter pleural fluid was aspirated. The catheter was then removed and a dressing was applied. COMPARISON: None. FINDINGS: Access site: Right lower hemithorax. Needle: One-Step centesis catheter with introducer needle. Fluid volume and description: Slightly serous, minimally turbid, 600 cc Fluid sent for diagnostic testing: Not requested Medications: 1% lidocaine for local anaesthesia. Complications: None; post-procedural chest radiograph is pending to assess for pneumothorax. The access for thoracentesis was obtained utilizing standard technique. During evacuation of the thoracentesis sudden onset chest pain was experience by the patient, which resolved after terminating the thoracentesis. It is suspected that this represents evidence of mucous plugging or other cause of central airway obstruction with suction resulting in absence of filling of the airways and lung parenchyma with air in response. IMPRESSION: Successful ultrasound-guided thoracentesis but only of 600 cc despite significantly greater pleural fluid being present. It is suspected that mucous plugging or mass lesion is obstructing passage of air into the bronchi on the right to compensate for evaluation of pleural fluid and these findings were discussed with the emergency room physician caring for the patient who will now obtain a contrast enhanced chest CT for further assessment.. Dictated by: Arvin Cunningham M.D. on 12/08/2020 at 17:25 Approved by: Arvin Cunningham M.D. on 12/08/2020 at 17:28
[2020-12-08 15:23] LABS: PTT Partial Thromboplastin Tim 33 SECONDS (26.4-36.2)
[2020-12-08 15:29] LABS: Alanine Aminotransferase 10 IU/L (<35); Albumin 3.7 g/dL (3.5-5.0); Albumin Globulin Ratio 0.9 (1.0-2.8); Alkaline Phosphatase 138 U/L (38-126); Aspartate Aminotransferase 28 IU/L (14-36); BUN Creatinine Ratio 12.6 (6-22); Bilirubin Total 0.2 mg/dL (0.2-1.3); Blood Urea Nitrogen 34 mg/dL (7-17); Calcium 9.1 mg/dL (8.4-10.2); Carbon Dioxide 26 mmol/L (22-32); Chloride 98 mmol/L (98-107); Creatine Kinase 54 U/L (30-135); Estimated Glomerular Filt Rate 17.4 mL/min (>60); Globulin 4.1 g/dL (1.7-4.1); Glucose 108 mg/dL (80-110); HEMOLYSIS < 15 (0-50); Lipase 39 U/L (23-300); Potassium 4.2 mmol/L (3.4-5.1); Sodium 135 mmol/L (137-145); Total Protein 7.8 g/dL (6.3-8.2)
[2020-12-08 15:40] LABS: Troponin I 0.045 ng/mL (0.01-0.034)
--- NOTE | 2020-12-08 17:19 | ED_ITS ---
HPI - SOB/Dyspnea General Chief Complaint: Shortness of Breath/Dyspnea Stated Complaint: chest pain Time Seen by Provider: 12/08/20 15:21 Source: patient and family Mode of arrival: Ambulatory Limitations: no limitations History of Present Illness HPI Narrative: Patient is a 69-year-old female with history of metastatic ovarian cancer with history of ascites and pleural effusion presenting with increasing shortness of breath progressively getting worse. She denies any fever or chills no chest pain. states that they are on palliative care. The goal is to return home. states that pleural effusion was drained a few weeks ago at the [facility]. Complaint: shortness of breath Related Data Home Medications Medication Instructions Recorded Confirmed [MARIJUANA CAPSULES] 1 cap PO BEDTIME PRN #0 08/06/17 11/16/18 [id number] 1 tab PO Q4-6H PRN 11/09/18 11/16/18 [Excedrin Migraine] Previous Rx's Medication Instructions Recorded oxycodone-acetaminophen 1 tab PO Q4-6H PRN #60 tab 11/16/18 Allergies Allergy/AdvReac Type Severity Reaction Status Date / Time erythromycin base AdvReac Unknown UPSET Verified 01/03/19 09:49 [ERYTHROMYCIN BASE] STOMACH Review of Systems Review of Systems Narrative: GENERAL: Denies chills, fatigue, malaise, fever, sweats, travel HEENT: Denies sinus pain, ear pain, sore throat, difficulty swallowing, neck pain RESPIRATORY: See HPI CARDIOVASCULAR: Denies chest pain, palpitations, orthopnea, edema GASTROINTESTINAL: Denies nausea, vomiting, abdominal pain, diarrhea, constipation, melena. : Denies dysuria, frequency, incontinence, hematuria, urinary retention, flank pain. MUSCULOSKELETAL: Denies weakness, joint pain, or bony pain SKIN: No rash, no erythema, no pruritus NEUROLOGIC: Denies weakness, dizziness, headache, numbness, change in speech, confusion PSYCHIATRIC: No concerning psychosocial issues. 12 point review of systems is negative except for those stated above and HPI Patient History Medical History Anemia History of cellulitis (~2012) Hypertension Hypothyroidism Metastatic carcinoma Poor sleep Weight loss Surgical History History of bilateral salpingo-oophorectomy (BSO) Status post appendectomy Status post breast lumpectomy Status post hysterectomy with oophorectomy (10/18/15) Status post laparoscopy (10/09/15) Status post tonsillectomy and adenoidectomy Status post tubal ligation Social History household members: spouse Smoking Status: Never smoker Smoking Status: Never smoker alcohol intake frequency: a few times a month Substance Use Type: does not use Exam Initial Vital Signs Initial Vital Signs: Vital Signs Temperature 98.1 F 12/08/20 14:48 Pulse Rate 102 H 12/08/20 14:48 Respiratory Rate 16 12/08/20 14:48 Blood Pressure 195/101 H 12/08/20 14:48 Pulse Oximetry 97 12/08/20 14:48 GENERAL: Alert 69-year-old female appears to not feel well and appears generally weak HEENT: Head atraumatic,EOMI, pupils reactive, face symmetric, [moist] mucous membranes CARDIOVASCULAR: Regular rate and rhythm without murmurs, rubs or gallops. RESPIRATORY: Complete decreased breath sounds on right side no conversational dyspnea clear breath sounds on the left no tachypnea ABDOMEN: Soft, nontender. Normoactive bowel sounds all 4 quadrants. No guarding or rebound. EXTREMITIES: Normal range of motion, no clubbing or edema. Neurovascularly intact NEUROLOGICAL: Alert and oriented x4.Normal gait and speech. Cranial nerves II through XII grossly intact. SKIN: Warm, dry, no laceration, no petechiae, no rashes or lesions. Course Orders Ordered: ED Orders 12/08/20 14:47 Complete Blood Count AUTO DIFF Stat Comprehensive Metabolic Panel Stat Lipase Stat Partial Thromboplastin Time Stat Prothrombin Time INR Stat Troponin & CK Cardiac Panel Stat 12/08/20 14:51 XR chest 1V Stat EKG-12 Lead Stat 12/08/20 15:21 US thoracentesis Stat 12/08/20 17:46 CT chest wo con Stat Discontinued Medications Morphine Sulfate (Morphine 2 Mg/Ml Inj) 2 mg IV NOW ONE Stop: 12/08/20 17:51 Last Admin: 12/08/20 18:13 Dose: 2 mg Documented by: [email or web address] Vital Signs Vital signs: Vital Signs - 8 hr 12/08/20 14:48 12/08/20 17:32 Temperature 98.1 F 97.6 F Pulse Rate 102 H 88 Respiratory Rate 16 22 Blood Pressure 195/101 H 156/90 H Pulse Oximetry 97 97 MDM - SOB/Dyspnea Lab Data Attestation: I reviewed the patient's lab results. Result diagrams: 12/08/20 14:47 12/08/20 14:47 Labs: Lab Results 12/08/20 12/08/20 12/08/20 Range/Units 14:47 14:47 14:47 WBC 6.9 (4.5-11.0) X10^3/uL RBC 3.60 L (4.0-5.2) X10^6/uL Hgb 10.3 L (12.0-16.0) g/dL Hct 31.9 L (36-46) % MCV 88.5 (80-100) fL MCH 28.6 (26-34) PG MCHC 32.3 (30-36) % RDW 19.9 H (11.6-14.8) % Plt Count 573 H (150-400) X10^3/uL Neut % (Auto) 73.6 (50-75) % Lymph % (Auto) 13.0 L (25-40) % Carter % (Auto) 10.8 (3-14) % Eos % (Auto) 1.7 L (2-4) % Baso % (Auto) 0.9 (0-2) % Neut # (Auto) 5000 (9426-1668) /uL Lymph # (Auto) 900 L (7705-3321) /uL Carter # (Auto) 700 (0-900) /uL Eos # (Auto) 100 (0-450) /uL Baso # (Auto) 100 (0-100) /uL PT 11.2 (10.1-12.7) SECONDS INR 1.0 (0.9-1.3) APTT 33 (26.4-36.2) SECONDS Sodium 135 L (137-145) mmol/L Potassium 4.2 (3.4-5.1) mmol/L Chloride 98 (98-107) mmol/L Carbon Dioxide 26 (22-32) mmol/L BUN 34 H (7-17) mg/dL Creatinine 2.69 H (0.52-1.04) mg/dL Estimated GFR 17.4 L (>60) mL/min BUN/Creatinine Ratio 12.6 (6-22) Glucose 108 (80-110) mg/dL Calcium 9.1 (8.4-10.2) mg/dL Total Bilirubin 0.2 (0.2-1.3) mg/dL AST 28 (14-36) IU/L ALT 10 (<35) IU/L Alkaline Phosphatase 138 H (38-126) U/L Total Creatine Kinase 54 (30-135) U/L CK-MB (CK-2) TNP CK-MB (CK-2) Rel Index TNP Troponin I 0.045 H (0.01-0.034) ng/mL Total Protein 7.8 (6.3-8.2) g/dL Albumin 3.7 (3.5-5.0) g/dL Globulin 4.1 (1.7-4.1) g/dL Albumin/Globulin Ratio 0.9 L (1.0-2.8) Lipase 39 (23-300) U/L Imaging Data Chest x-ray: Radiologist's Impression: PROCEDURE: XR CHEST 1V INDICATIONS: chest pain TECHNIQUE: One view of the chest was acquired. COMPARISON: [facility], CT, CT CHEST ABDOMEN PELVIS WITH CONTRAST, 06/29/2020, 14:41. [facility], CT, CT CHEST WITH CONTRAST, 08/08/2020, 11:42. [facility], CR, XR CHEST 1V, 04/15/2018, 14:59. [facility], CR, XR CHEST 1V, 04/15/2018, 13:37. FINDINGS: Surgical changes and devices: Port-A-Cath from left-sided approach extends into the expected region of the superior vena cava. Lungs and pleura: Lungs are asymmetric, aerated on the left and occluded or compressed on the right. Mucous plugging within a bronchial airway could produce this appearance.. Mediastinum: Mediastinal contours appear normal. Heart size is normal. Bones and chest wall: No suspicious bony lesions. Overlying soft tissues a ppear unremarkable. IMPRESSION: Asymmetric appearance of the lung parenchyma, without aeration on the right and with aeration on the left. Mucous plugging within a bronchial airway could produce this appearance, with dense atelectasis and retention of pulmonary secretions. It is unclear at this time whether a large pleural effusion is present on the right. Prior CT scanning has shown lung masses and mediastinal/right hilar mass. Dictated by: Arvin Cunningham M.D. on 12/08/2020 at 15:34 Approved by: Arvin Cunningham M.D. on 12/08/2020 at 15:37 CXR #2: Radiologist's Impression: PROCEDURE: XR CHEST 1V INDICATIONS: POST THORA TECHNIQUE: One view of the chest was acquired. COMPARISON: [facility], CT, CT CHEST WITH CONTRAST, 08/08/2020, 11:42. [facility], CR, XR CHEST 1V, 12/08/2020, 15:13. FINDINGS: Surgical changes and devices: A left chest wall port is well positioned. Lungs and pleura: There is no pneumothorax after thoracentesis. An aerated portion of lung is now seen in the right mid lung. The left lung is clear. Mediastinum: Mediastinal contours appear normal. Heart size is normal. Bones and chest wall: No suspicious bony lesions. Overlying soft tissues appear unremarkable. IMPRESSION: Status post thoracentesis of the right lung with no evidence of pneumothorax. There is a persistent large right pleural effusion. Dictated by: Jose Lagunas M.D. on 12/08/2020 at 17:03 CT scan - chest: Radiologist's Impression: PROCEDURE: CT CHEST WO CON INDICATIONS: ? mucous plug vs tumor TECHNIQUE: Noncontrast 5 mm thick sections acquired from the pulmonary apices to the po sterior costophrenic angles. 1 mm lung window, 5 mm thick coronal and sagittal and 7 mm axial MIP reformats were then acquired. For radiation dose reduction, the following was used: automated exposure control, adjustment of mA and/or kV according to patient size. COMPARISON: [facility], CT, CT CHEST WITH CONTRAST, 08/08/2020, 11:42. FINDINGS: Image quality: Excellent. Lungs and pleura: The left lung has multiple nodules measuring between 0.5 and 1.5 cm. These are overall larger compared to 08/08/2020, for example a right upper lobe nodule measuring 10 mm previously measured 8 mm. Another right upper lobe nodule which previously measured 4 mm now measures 7 mm. The right lung demonstrates partial aeration of a mid lung segment. Most of the lung on the right is atelectatic and there is a large pleural effusion. Mediastinum: Heart size is normal. No pericardial effusion. No mediastinal adenopathy by size criteria. Thoracic aorta and central pulmonary arteries are normal in size. Esophagus is normal in caliber. No hiatal hernia. The aorta has athe rosclerotic calcifications. Bones and chest wall: No suspicious bony lesions. No vertebral body compression fractures. No axillary or supraclavicular adenopathy by size criteria. Thyroid gland is normal . Abdomen: Visualized upper abdominal solid organs and bowel loops appear normal in the absence of contrast. IMPRESSION: 1. Large right pleural effusion with compressive atelectasis and partial aeration of a mid lung segment. 2. Bilateral nodules left lung measuring up to 1.5 cm are uniformly larger. Dictated by: Jose Lagunas M.D. on 12/08/2020 at 18:13 Approved by: Jose Lagunas M.D. on 12/08/2020 at 18:20 thoracentesis: Radiologist's Impression: PROCEDURE: US THORACENTESIS INDICATIONS: right lung TECHNIQUE: The indications, alternatives, benefits, risks, and complications of the procedure were explained to the patient. Written informed consent was obtained and placed in the chart. The chest was examined sonographically, and an appropriate site was chosen for thoracentesis. The skin was prepared and draped in the usual sterile fashion, and 1% lidocaine was infiltrated from the skin down through the pleural surface. A 19- gauge catheter-covered needle was then introduced into the pleural space, the catheter was advanced and the needle was withdrawn, and thereafter pleural fluid was aspirated. The catheter was then removed and a dressing was applied. COMPARISON: None. FINDINGS: Access site: Right lower hemithorax. Needle: One-Step centesis catheter with introducer needle. Fluid volume and description: Slightly serous, minimally turbid, 600 cc Fluid sent for diagnostic testing: Not requested Medications: 1% lidocaine for local anaesthesia. Complications: None; post-procedural chest radiograph is pending to assess for pneumothorax. The access for thoracentesis was obtained utilizing standard technique. During evacuation of the thoracentesis sudden onset chest pain was experience by the patient, which resolved after terminating the thoracentesis. It is suspected that this represents evidence of mucous plugging or other cause of central airway obstruction with suction resulting in absence of filling of the airways and lung parenchyma with air in response. IMPRESSION: Successful ultrasound-guided thoracentesis but only of 600 cc d espite significantly greater pleural fluid being present. It is suspected that mucous plugging or mass lesion is obstructing passage of air into the bronchi on the right to compensate for evaluation of pleural fluid and these findings were discussed with the emergency room physician caring for the patient who will now obtain a contrast enhanced chest CT for further assessment.. Dictated by: Arvin Cunningham M.D. on 12/08/2020 at 17:25 Approved by: Arvin Cunningham M.D. on 12/08/2020 at 17:28 ECG Data Attestation: I personally reviewed and interpreted this ECG as follows: Prior ECG tracings: not available for review Interpretation: Sinus rhythm rate 97 p.r. interval [address] changes low voltage noted no ST changes or T-wave inversions no priors to compare MDM Narrative Medical decision making narrative: Patient is found to have a large pleural effusion and complete whiteout of right long. She surprisingly does not have significant respiratory distress. Thoracentesis done by Radiology. Only able to remove 600 cc of fluid before patient started having chest pain. Concern for possible mucus plugging and I spoke with Dr. Cunningham who performed the procedure and recommended a CT. The patient's GFR is 17 not compatible with IV contrast. At this time vital believe her to need IV contrast. Low suspicion for PE at this time. CT does confirm large pleural effusion with atelectasis. At this time I suspect that patient will require a repeat thoracentesis is however she did not tolerate the 1 today. She is not requiring oxygen is and has been satting well above 90% on room air in the emergency department. Discussed all testing results with patient and her . At this time they would like to go home and return if bleeding worsens. Discharge Plan Departure Patient Disposition: Home Clinical Impression: Pleural effusion Instructions: Pleural Effusion Activity Restrictions/Additional Instructions: *You have been diagnosed with pleural effusion *What to do: At this time he will likely need much more fluid drained off your right lung. We attempted today but were only able to get some. *Continue to take medications as directed *Follow up with your primary care provider in 2-3 days *Return to ER if you should have increasing shortness of breath, chest pain, dizziness, lightheadedness, passing out or any new, worsening or concerning symptoms Prescriptions: No Action [MARIJUANA CAPSULES] 1 cap PO BEDTIME PRN (Reason: sleep or pain) Qty: 0 RF: 0 Excedrin Migraine 250-250-65 mg Tablet 1 tab PO Q4-6H PRN (Reason: Pain (Scale Score 1-3)) RF: 0 oxycodone-acetaminophen 5-325 mg Tablet 1 tab PO Q4-6H PRN (Reason: fallopian ca, with ascites ) Qty: 60 RF: 0 Referrals: Juan Storey MD [Primary Care Provider] -
--- NOTE | 2020-12-08 17:46 | DI.CT.S_ITS ---
PROCEDURE: CT CHEST WO CON INDICATIONS: ? mucous plug vs tumor TECHNIQUE: Noncontrast 5 mm thick sections acquired from the pulmonary apices to the posterior costophrenic angles. 1 mm lung window, 5 mm thick coronal and sagittal and 7 mm axial MIP reformats were then acquired. For radiation dose reduction, the following was used: automated exposure control, adjustment of mA and/or kV according to patient size. COMPARISON: [facility], CT, CT CHEST WITH CONTRAST, 08/08/2020, 11:42. FINDINGS: Image quality: Excellent. Lungs and pleura: The left lung has multiple nodules measuring between 0.5 and 1.5 cm. These are overall larger compared to 08/08/2020, for example a right upper lobe nodule measuring 10 mm previously measured 8 mm. Another right upper lobe nodule which previously measured 4 mm now measures 7 mm. The right lung demonstrates partial aeration of a mid lung segment. Most of the lung on the right is atelectatic and there is a large pleural effusion. Mediastinum: Heart size is normal. No pericardial effusion. No mediastinal adenopathy by size criteria. Thoracic aorta and central pulmonary arteries are normal in size. Esophagus is normal in caliber. No hiatal hernia. The aorta has atherosclerotic calcifications. Bones and chest wall: No suspicious bony lesions. No vertebral body compression fractures. No axillary or supraclavicular adenopathy by size criteria. Thyroid gland is normal . Abdomen: Visualized upper abdominal solid organs and bowel loops appear normal in the absence of contrast. IMPRESSION: 1. Large right pleural effusion with compressive atelectasis and partial aeration of a mid lung segment. 2. Bilateral nodules left lung measuring up to 1.5 cm are uniformly larger. Dictated by: Jose Lagunas M.D. on 12/08/2020 at 18:13 Approved by: Jose Lagunas M.D. on 12/08/2020 at 18:20
[2020-12-08] MEDS: MORPHINE 2 MG/ML INJ IV (18:13)
== END 2020-12-08 19:05 | disposition home or self-care (01) ==
PROVIDERS: Emergency Provider Emergency Medicine; PCP Family Medicine
DX: J90 Pleural effusion, not elsewhere classified (principal); R07.9 Chest pain, unspecified
CPT/HCPCS: 32555; 36415; 71045; 71250; 80053; 82550; 83690; 84484; 85025; 85610; 85730; 93005; 93010; 96374; 99284; J2270

== ENCOUNTER → 2020-12-19 08:23 | Outpatient (CLI) | payer MEDICARE, OTHER, SELFPAY ==
--- NOTE | 2020-12-19 | DI.US.S_ITS ---
PROCEDURE: US THORACENTESIS INDICATIONS: RIGHT PLEURAL EFFUSION - THERAPEURTIC THORACENTESIS TECHNIQUE: The indications, alternatives, benefits, risks, and complications of the procedure were explained to the patient. Written informed consent was obtained and placed in the chart. The chest was examined sonographically, and an appropriate site was chosen for thoracentesis. The skin was prepared and draped in the usual sterile fashion, and 1% lidocaine was infiltrated from the skin down through the pleural surface. A 19-gauge catheter-covered needle was then introduced into the pleural space, the catheter was advanced and the needle was withdrawn, and thereafter pleural fluid was aspirated. The catheter was then removed and a dressing was applied. COMPARISON: [facility], THORACENTESIS, 12/08/2020, 16:15. FINDINGS: Access site: Right hemithorax. Needle: One-Step centesis catheter with introducer needle. Fluid volume and description: 400 cc of serous fluid Fluid sent for diagnostic testing: Not requested Medications: 1% lidocaine for local anaesthesia. Complications: None; post-procedural chest radiograph is pending to assess for pneumothorax. IMPRESSION: Successful ultrasound-guided thoracentesis. However, only 400 cc of pleural fluid was obtained before the patient was unable to continue secondary to pain which developed during removal of fluid, similar to prior thoracenteses. A chest tube may be required for larger volumes of fluid removal. Dictated by: Wilian Galindo M.D. on 12/19/2020 at 14:02 Approved by: Wilian Galindo M.D. on 12/19/2020 at 14:04
--- NOTE | 2020-12-19 09:17 | DI.RAD.S_ITS ---
PROCEDURE: XR CHEST 1V INDICATIONS: POST THORA TECHNIQUE: One view of the chest was acquired. COMPARISON: [facility], THORACENTESIS, 12/19/2020, 8:52. [facility], THORACENTESIS, 12/08/2020, 16:15. [facility], XR CHEST 1V, 12/08/2020, 16:55. FINDINGS: Surgical changes and devices: Left chest port with the tip unchanged. Lungs and pleura: Large right pleural effusion is present. There is mildly improved aeration since 12/08/20, status post thoracentesis. No pneumothorax. Left lung unchanged except for scattered atelectasis/scarring. Mediastinum: Cardiac silhouette and mediastinal contours are stable. Bones and chest wall: No suspicious bony lesions. Overlying soft tissues appear unremarkable. IMPRESSION: Mildly improved aeration of the right lung however large pleural effusion persists with near complete opacification. Of note, suboptimal amount of fluid was obtained during the thoracentesis, which was related to pain which developed after removal of approximately 400 cc, similar to prior thoracenteses. A chest tube may be required for removal of larger volumes of fluid. Dictated by: Wilian Galindo M.D. on 12/19/2020 at 9:28 Approved by: Wilian Galindo M.D. on 12/19/2020 at 9:32
== END ==
PROVIDERS: PCP Family Medicine; Referring Provider Family Medicine; Visit Provider Family Medicine
DX: J90 Pleural effusion, not elsewhere classified (principal); C56.2 Malignant neoplasm of left ovary
CPT/HCPCS: 32555; 71045